=== PATIENT | male | born 1940 | race Caucasian/White ===

== ENCOUNTER → 2018-12-21 13:45 | Outpatient (CLI) | payer OTHER, SELFPAY ==
--- NOTE | 2018-12-21 | DI.RAD.S_ITS ---
PROCEDURE: XR CHEST 2V INDICATIONS: Unspecified chronic bronchitis TECHNIQUE: 2 views of the chest were acquired. COMPARISON: [facility], CT, CHEST HIGH RESOLUTION, 10/21/2016, 13:10. [facility], CR, CHEST 2 VIEW, 11/29/2014, 11:39. [facility], RG, XR CXR 2V, 08/18/2006, 9:43. [facility], CR, CHEST 2 VIEW, 12/04/2016, 10:21. [facility], , CHEST 2 VIEW, 08/27/2015, 14:21. FINDINGS: Surgical changes and devices: None. Lungs and pleura: Lungs are again seen to be abnormal with asymmetric left greater than right chronic lung disease that appears to represent chronic fibrotic change in bronchitis/bronchiectasis.. No pleural effusions or pneumothorax. Mediastinum: Mediastinal contours are normal. Heart size is normal. Bones and chest wall: No suspicious bony abnormalities. Soft tissues appear unremarkable. IMPRESSION: Chronic asymmetric left greater than right lung base airspace disease likely a combination of chronic bronchitis and bronchiectasis. Prior high-resolution chest CT has evaluated in the lung bases in this patient 10/21/16. No definite meter changes records clerk time. Dictated by: Richard Pichardo M.D. on 12/21/2018 at 15:12 Approved by: Richard Pichardo M.D. on 12/21/2018 at 15:14
== END ==
PROVIDERS: PCP Family Medicine; Visit Provider Orthopaedic Surgery
DX: J42 Unspecified chronic bronchitis (principal)
CPT/HCPCS: 71046

== ENCOUNTER 2020-10-17 10:24 | Emergency (ER) | payer OTHER, SELFPAY ==
[2020-10-17] VITALS (8 sets, daily range): BP systolic 117–143; BP diastolic 71–81; PULSE 59–72; RESP 14–21; TEMP 36.7; O2SAT 89–99; BMI 25.4
--- NOTE | 2020-10-17 10:35 | DI.RAD.S_ITS ---
PROCEDURE: XR CHEST 1V INDICATIONS: chest pain TECHNIQUE: One view of the chest was acquired. COMPARISON: [facility], , XR CHEST 2V, 12/21/2018, 13:57. [facility], , CHEST 2 VIEW, 12/04/2016, 10:21. FINDINGS: Surgical changes and devices: Electronic monitor left upper chest. Lungs and pleura: Lungs are abnormal with chronic fibrotic change and pulmonary hyperexpansion.. No pleural effusions or pneumothorax. Mediastinum: Mediastinal contours appear normal. Heart size is normal. Bones and chest wall: No suspicious bony lesions. Overlying soft tissues appear unremarkable. IMPRESSION: Chronic fibrotic pipe changer the lung parenchyma through the mid and lower lungs bilaterally. No definite acute disease. COPD, pulmonary hyperexpansion. Dictated by: Richard Pichardo M.D. on 10/17/2020 at 11:09 Approved by: Richard Pichardo M.D. on 10/17/2020 at 12:26
[2020-10-17 10:50] LABS: Add Manual Diff / Slide Review NO; Basophils Absolute Auto 100 /uL (0-100); Basophils Percent Auto 0.8 % (0-2); Eosinophils Absolute Auto 100 /uL (0-450); Eosinophils Percent Auto 0.9 % (2-4); Hematocrit 39.2 % (41-53); Lymphocytes Absolute Auto 1600 /uL (1100-4500); Lymphocytes Percent Auto 14.7 % (25-40); Mean Corpuscular HGB Conc 33.1 % (30-36); Mean Corpuscular Hemoglobin 28.5 PG (26-34); Mean Corpuscular Volume 86.1 fL (80-100); Monocytes Absolute Auto 900 /uL (0-900); Monocytes Percent Auto 8.7 % (3-14); Neutrophils Absolute Auto 8100 /uL (1500-7000); Neutrophils Percent Auto 74.9 % (50-75); Platelet Count 221 X10^3/uL (150-400); Red Blood Cell Count 4.56 X10^6/uL (4.5-5.9); Red Cell Distribution Width 14.4 % (11.6-14.8); White Blood Cell Count 10.8 X10^3/uL (4.5-11.0)
[2020-10-17 10:56] LABS: Prothrombin Time 11.7 SECONDS (10.1-12.7)
[2020-10-17 10:58] LABS: PTT Partial Thromboplastin Tim 20 SECONDS (26.4-36.2)
[2020-10-17 11:00] LABS: Alanine Aminotransferase 17 IU/L (<50); Albumin 4.8 g/dL (3.5-5.0); Albumin Globulin Ratio 1.4 (1.0-2.8); Alkaline Phosphatase 93 U/L (38-126); Aspartate Aminotransferase 21 IU/L (17-59); BUN Creatinine Ratio 19.5 (6-22); Bilirubin Total 0.5 mg/dL (0.2-1.3); Blood Urea Nitrogen 22 mg/dL (9-20); Calcium 10.1 mg/dL (8.4-10.2); Carbon Dioxide 27 mmol/L (22-32); Chloride 100 mmol/L (98-107); Creatine Kinase 39 U/L (55-170); Estimated Glomerular Filt Rate > 60.0 mL/min (>60); Globulin 3.4 g/dL (1.7-4.1); Glucose 123 mg/dL (80-110); HEMOLYSIS < 15 (0-50); Lipase 71 U/L (23-300); Magnesium 2.1 mg/dL (1.6-2.3); Potassium 4.4 mmol/L (3.4-5.1); Sodium 139 mmol/L (137-145); Total Protein 8.2 g/dL (6.3-8.2)
[2020-10-17 11:11] LABS: Troponin I < 0.012 ng/mL (0.01-0.034)
--- NOTE | 2020-10-17 11:42 | ED.GENADULT ---
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 He describes headache feeling faint no chest pain or palpitations he was sitting on a stool and slumped over onto the counter. His is able to hold onto him to prevent a fall. She noted that he was diaphoretic with the event. She also noted that he had a slight right hand tremor however this may be baseline. He currently has a Zio patch that was placed last night as part of his atrial fibrillation workup with Dr. Alvarado. His noted that she did indicate an event on the Zio patch with this episode. By the time he presents to the emergency department he is asymptomatic and pain free. He describes no recent fevers, chills, chest pain, dyspnea, abdominal pain. He notes that he does have BPH and was recently started on both tamsulosin and finasteride. Related Data Home Medications Medication Instructions Recorded Confirmed aspirin 325 mg OR QDAY #0 06/02/16 10/17/20 diltiazem HCl [Cardizem] 120 mg OR QDAY #0 06/02/16 10/17/20 flecainide 150 mg OR BID #0 06/02/16 10/17/20 fluticasone propion-salmeterol 1 inh IH BID #0 06/02/16 10/17/20 [Advair Diskus] rosuvastatin [Crestor] 10 mg OR QDAY #0 06/02/16 10/17/20 finasteride 5 mg PO DAILY 10/17/20 10/17/20 tamsulosin 0.4 mg PO DAILY 10/17/20 10/17/20 Allergies Allergy/AdvReac Type Severity Reaction Status Date / Time grass pollen [GRASS POLLEN] Allergy Unknown Verified 10/17/20 10:46 pollen extracts Allergy Unknown Verified 10/17/20 10:46 [POLLEN EXTRACTS] dust Allergy Unknown Uncoded 11/03/17 11:57 Review of Systems Review of Systems Narrative: Remainder of review of systems including constitutional, ENT, cardiovascular, respiratory, GI, , musculoskeletal, skin, neurologic and psychiatric systems reviewed and are unremarkable except as noted in HPI. Patient History Medical History (Updated 10/17/20 @ 13:20 by Yuridia Funez MD) Blind Bronchiectasis Chronic a-fib Gout Social History Smoking Status: Never smoker Smoking Status: Never smoker alcohol intake frequency: a few times a month Substance Use Type: does not use Exam Narrative Exam Narrative: General: Healthy appearing, in no acute distress. Able to give a complete and coherent history. Well-nourished well-developed HEENT: Moist mucous membranes, pupils are not reactive and eyes do not focus, Neck: No JVD, supple Respiratory: Lungs with scattered wheeze and occasional rhonchi but no consolidative findings. Full and symmetrical air movement Cardiac: Regular rate and rhythm no murmurs no bruits Abdomen: Soft, nontender, good bowel tones, no flank pain Skin: Warm and dry, no rashes Neurologic: Grossly neurologically intact with no obvious asymmetries or abnormalities Extremities: No trauma, well perfused, no lower extremity edema Psych: Cooperative, appropriate insight and affect Initial Vital Signs Initial Vital Signs: Vital Signs Temperature 98.1 F 10/17/20 10:30 Pulse Rate 65 10/17/20 10:30 Respiratory Rate 16 10/17/20 10:30 Blood Pressure 126/73 10/17/20 10:30 Pulse Oximetry 99 10/17/20 10:30 Course Orders Ordered: ED Orders 10/17/20 10:35 XR chest 1V Stat EKG-12 Lead Stat 10/17/20 10:41 Complete Blood Count AUTO DIFF Stat Comprehensive Metabolic Panel Stat Lipase Stat Magnesium Stat Partial Thromboplastin Time Stat Prothrombin Time INR Stat Troponin & CK Cardiac Panel Stat Vital Signs Vital signs: Vital Signs - 8 hr 10/17/20 10:30 10/17/20 10:41 10/17/20 11:00 Temperature 98.1 F Pulse Rate 65 68 61 Respiratory Rate 16 15 18 Blood Pressure 126/73 126/73 131/71 Pulse Oximetry 99 99 99 10/17/20 11:30 10/17/20 12:00 10/17/20 12:30 Temperature Pulse Rate 63 59 L 62 Respiratory Rate 18 14 15 Blood Pressure 140/79 140/72 143/81 H Pulse Oximetry 97 97 97 10/17/20 12:42 Temperature Pulse Rate 72 Respiratory Rate 21 Blood Pressure 122/72 Pulse Oximetry Medical Decision Making Medical Records Medical records reviewed: Yes I reviewed the patient's medical records. Lab Data Lab results reviewed: Yes I reviewed the patient's lab results. Result diagrams: 10/17/20 10:41 10/17/20 10:41 Labs: Lab Results 10/17/20 10/17/20 10/17/20 Range/Units 10:41 10:41 10:41 WBC 10.8 (4.5-11.0) X10^3/uL RBC 4.56 (4.5-5.9) X10^6/uL Hgb 13.0 L (13.5-17.5) g/dL Hct 39.2 L (41-53) % MCV 86.1 (80-100) fL MCH 28.5 (26-34) PG MCHC 33.1 (30-36) % RDW 14.4 (11.6-14.8) % Plt Count 221 (150-400) X10^3/uL Neut % (Auto) 74.9 (50-75) % Lymph % (Auto) 14.7 L (25-40) % [place] % (Auto) 8.7 (3-14) % Eos % (Auto) 0.9 L (2-4) % Baso % (Auto) 0.8 (0-2) % Neut # (Auto) 8100 H (3229-8634) /uL Lymph # (Auto) 1600 (5190-1000) /uL [place] # (Auto) 900 (0-900) /uL Eos # (Auto) 100 (0-450) /uL Baso # (Auto) 100 (0-100) /uL PT 11.7 (10.1-12.7) SECONDS INR 1.0 (0.9-1.3) APTT 20 L (26.4-36.2) SECONDS Sodium 139 (137-145) mmol/L Potassium 4.4 (3.4-5.1) mmol/L Chloride 100 (98-107) mmol/L Carbon Dioxide 27 (22-32) mmol/L BUN 22 H (9-20) mg/dL Creatinine 1.13 (0.66-1.25) mg/dL Estimated GFR > 60.0 (>60) mL/min BUN/Creatinine Ratio 19.5 (6-22) Glucose 123 H (80-110) mg/dL Calcium 10.1 (8.4-10.2) mg/dL Magnesium 2.1 (1.6-2.3) mg/dL Total Bilirubin 0.5 (0.2-1.3) mg/dL AST 21 (17-59) IU/L ALT 17 (<50) IU/L Alkaline Phosphatase 93 (38-126) U/L Total Creatine Kinase 39 L (55-170) U/L CK-MB (CK-2) TNP CK-MB (CK-2) Rel Index TNP Troponin I < 0.012 (0.01-0.034) ng/mL Total Protein 8.2 (6.3-8.2) g/dL Albumin 4.8 (3.5-5.0) g/dL Globulin 3.4 (1.7-4.1) g/dL Albumin/Globulin Ratio 1.4 (1.0-2.8) Lipase 71 (23-300) U/L 10/17/20 Range/Units 10:41 WBC (4.5-11.0) X10^3/uL RBC (4.5-5.9) X10^6/uL Hgb (13.5-17.5) g/dL Hct (41-53) % MCV (80-100) fL MCH (26-34) PG MCHC (30-36) % RDW (11.6-14.8) % Plt Count (150-400) X10^3/uL Neut % (Auto) (50-75) % Lymph % (Auto) (25-40) % [place] % (Auto) (3-14) % Eos % (Auto) (2-4) % Baso % (Auto) (0-2) % Neut # (Auto) (8317-9423) /uL Lymph # (Auto) (4839-8586) /uL [place] # (Auto) (0-900) /uL Eos # (Auto) (0-450) /uL Baso # (Auto) (0-100) /uL PT (10.1-12.7) SECONDS INR (0.9-1.3) APTT (26.4-36.2) SECONDS Sodium (137-145) mmol/L Potassium (3.4-5.1) mmol/L Chloride (98-107) mmol/L Carbon Dioxide (22-32) mmol/L BUN (9-20) mg/dL Creatinine (0.66-1.25) mg/dL Estimated GFR (>60) mL/min BUN/Creatinine Ratio (6-22) Glucose (80-110) mg/dL Calcium (8.4-10.2) mg/dL Magnesium Cancelled (1.6-2.3) mg/dL Total Bilirubin (0.2-1.3) mg/dL AST (17-59) IU/L ALT (<50) IU/L Alkaline Phosphatase (38-126) U/L Total Creatine Kinase (55-170) U/L CK-MB (CK-2) CK-MB (CK-2) Rel Index Troponin I (0.01-0.034) ng/mL Total Protein (6.3-8.2) g/dL Albumin (3.5-5.0) g/dL Globulin (1.7-4.1) g/dL Albumin/Globulin Ratio (1.0-2.8) Lipase (23-300) U/L Imaging Data Chest x-ray: Radiologist's Impression: FINDINGS: Surgical changes and devices: Electronic monitor left upper chest. Lungs and pleura: Lungs are abnormal with chronic fibrotic change and pulmonary hyperexpansion.. No pleural effusions or pneumothorax. Mediastinum: Mediastinal contours appear normal. Heart size is normal. Bones and chest wall: No suspicious bony lesions. Overlying soft tissues appear unremarkable. 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 No definite acute disease. COPD, pulmonary hyperexpansion. Dictated by: Richard Pichardo M.D. on 10/17/2020 at 11:09 ECG Data Attestation: I personally reviewed and interpreted this ECG as follows: Interpretation: Sinus rhythm at a rate of 70 Biventricular block with leftward axis No acute ischemic changes MDM Narrative Medical decision making narrative: 80-year-old gentleman with a syncopal episode at home slumping from the chair onto the table with no suggestion of acute coronary syndrome or myocardial infarction, no stroke, no sepsis or other infection appreciated. He did recently start both Flomax and finasteride in her taking both in the morning. He notes that he frequently can have low blood pressure. In the emergency room his exam is entirely benign with no orthostasis. Of note he does have a Zio patch in place and his did indicate with patch the time of his syncopal episode. He currently is in sinus rhythm. With no other specific findings found patient will be discharged. I will ask him to split the Flomax and the finasteride, 1 in the morning 1 in the evening and check morning blood pressures. If significantly orthostatic encourage him to drink more fluid and will need to follow-up with his supervisor finishing room with blood pressure readings, findings from the Zio patch and discussion of additional medications for his paroxysmal atrial fibrillation and blood pressure control. At this time he is safe for home discharge Discharge Plan Departure Patient Disposition: Home Clinical Impression: Syncope Qualifiers: Syncope type: unspecified Qualified Code(s): R55 - Syncope and collapse Instructions: DI for Syncope in Adults (Fainting) Activity Restrictions/Additional Instructions: Thank you for coming in today Your workup was quite reassuring. There is no evidence of a heart attack or heart attack like syndrome. No stroke, no significant infections or electrolyte abnormalities. I suspect that the episode that you had this morning is related to low blood pressure. I am going to suggest that you document blood pressures each morning and follow-up with your supervisor finishing room within the next couple of weeks with results of the Zio patch and discussion of blood pressures. I am also going to suggest that you split up the finasteride and tamsulosin, 1 in the morning 1 in the evening rather than both at the same time. If you have new findings or other concerns, please feel free to return to the emergency department Prescriptions: No Action flecainide 150 MG tablet 150 mg OR BID Qty: 0 RF: 0 rosuvastatin [Crestor] 10 MG tablet 10 mg OR QDAY Qty: 0 RF: 0 diltiazem HCl [Cardizem] 120 MG tablet 120 mg OR QDAY Qty: 0 RF: 0 aspirin 325 MG tablet 325 mg OR QDAY Qty: 0 RF: 0 fluticasone propion-salmeterol [Advair Diskus] 250-50 mcg/dose blister with device 1 inh IH BID Qty: 0 RF: 0 finasteride 5 mg tablet 5 mg PO DAILY RF: 0 tamsulosin 0.4 mg capsule 0.4 mg PO DAILY RF: 0 Referrals: Mirza Sinha MD [Primary Care Provider] -
== END 2020-10-17 13:37 | disposition home or self-care (01) ==
PROVIDERS: Emergency Provider Emergency Medicine; PCP Family Medicine
DX: R55 Syncope and collapse (principal); I48.91 Unspecified atrial fibrillation; Z79.82 Long term (current) use of aspirin
CPT/HCPCS: 71045; 80053; 82550; 83690; 83735; 84484; 85025; 85610; 85730; 93005; 93010; 99281; 99283

== ENCOUNTER → 2020-12-03 11:55 | Outpatient (CLI) | payer OTHER, SELFPAY ==
--- NOTE | 2020-12-03 12:11 | DI.CT.S_ITS ---
PROCEDURE: CT HEAD/BRAIN WO CON INDICATIONS: SYNCOPE TECHNIQUE: Noncontrast 4.5 mm thick angled axial sections acquired from the foramen magnum to the vertex, with coronal and sagittal reformats. For radiation dose reduction, the following was used: automated exposure control, adjustment of mA and/or kV according to patient size. COMPARISON: [facility], CT, SINUS SCREEN WO CONTRAST, 05/27/2012, 11:28. FINDINGS: Image quality: Excellent. CSF spaces: Basal cisterns are patent. No extra-axial fluid collections. The ventricles are symmetric in size and shape. Brain: No intracranial bleeds or masses. There is cerebral volume loss for age, with resultant ventricular and sulcal prominence. There are periventricular and deep white matter chronic small vessel ischemic changes. There is intracranial internal carotid artery atherosclerosis. Skull and face: Calvarium and visualized facial bones appear intact, without suspicious lesions. Sinuses: At least moderate mucosal thickening can be seen throughout the paranasal sinuses. There is moderate leftward nasal septal deviation. The mastoid air cells are poorly seen. IMPRESSION: No acute intracranial process is seen. Paranasal sinus disease noted. Dictated by: Jostin Wallace M.D. on 12/03/2020 at 11:32 Approved by: Jostin Wallace M.D. on 12/03/2020 at 11:33
== END ==
PROVIDERS: PCP Family Medicine; Referring Provider Family Medicine; Visit Provider Family Medicine
DX: J32.8 Other chronic sinusitis (principal); J34.2 Deviated nasal septum; I65.29 Occlusion and stenosis of unspecified carotid artery; R55 Syncope and collapse; R51.9 Headache, unspecified
CPT/HCPCS: 70450

== ENCOUNTER → 2021-03-13 09:47 | Outpatient (CLI) | payer OTHER, SELFPAY ==
--- NOTE | 2021-03-13 | DI.RAD.S_ITS ---
PROCEDURE: XR HIP W PEL IF DONE RT 2V COMPARISON: None. INDICATIONS: Pain in right hip FINDINGS: Two views of the right pelvis demonstrate degenerative changes with joint space narrowing, osteophytes, and subchondral sclerosis. No focal osseous lesions. Soft tissues are normal. Vasculature demonstrates atherosclerotic calcifications. IMPRESSION: Degenerative changes of the right hip consistent with osteoarthritis. Dictated by: Derian Hammond M.D. on 03/13/2021 at 15:57 Approved by: Derian Hammond M.D. on 03/13/2021 at 15:58
== END ==
PROVIDERS: PCP Family Medicine; Referring Provider Family Medicine; Visit Provider Family Medicine
DX: M25.551 Pain in right hip (principal)
CPT/HCPCS: 73502

== ENCOUNTER 2021-10-03 03:55 | Emergency (ER) | payer OTHER, SELFPAY ==
[2021-10-03 04:07] VITALS: BP 184/102; PULSE 74; RESP 14; TEMP 37; O2SAT 98
--- NOTE | 2021-10-03 04:09 | ED.ARRPALP ---
HPI - Arrhythmia/Palpitations General Stated Complaint: afib Time Seen by Provider: 10/03/21 03:56 History of Present Illness HPI narrative: 81-year-old male nonsmoker with a history of atrial fibrillation, hypertension hyperlipidemia presents with his in the chief complaint of an episode of atrial fibrillation early this morning. He states that he went to bed in his normal state of health and denies any dizziness, weakness or lightheadedness. He has had no chest pain or shortness of breath. He states that he woke up and felt his heart racing and felt a bit anxious which he is very familiar with, given his history of atrial fibrillation. Took his flecainide at home as instructed by his Cardiology team and drove here, by the time he arrived his symptoms had resolved in on initial evaluation he is found to be in a normal sinus rhythm. He follows with cardiology in [place]. He does state that he has stopped taking his anticoagulation because he is legally blind in frequently bumps into things and falls and he and his field insurance sales manager agreed that with frequent falls his risk of being on an anticoagulant is higher than not taking it Related Data Home Medications Medication Instructions Recorded Confirmed aspirin 325 mg tablet 325 mg OR QDAY #0 06/02/16 10/17/20 diltiazem HCl 120 mg tablet 120 mg OR QDAY #0 06/02/16 10/17/20 (Cardizem) flecainide 150 mg tablet 150 mg OR BID #0 06/02/16 10/17/20 fluticasone 250 mcg-salmeterol 50 1 inh IH BID #0 06/02/16 10/17/20 mcg/dose blistr powdr for inhalation (Advair Diskus) rosuvastatin 10 mg tablet (Crestor) 10 mg OR QDAY #0 06/02/16 10/17/20 finasteride 5 mg tablet 5 mg PO DAILY 10/17/20 10/17/20 tamsulosin 0.4 mg capsule 0.4 mg PO DAILY 10/17/20 10/17/20 Allergies Allergy/AdvReac Type Severity Reaction Status Date / Time grass pollen [GRASS POLLEN] Allergy Unknown Verified 10/17/20 10:46 pollen extracts Allergy Unknown Verified 10/17/20 10:46 [POLLEN EXTRACTS] dust Allergy Unknown Uncoded 11/03/17 11:57 Review of Systems Review of Systems Narrative: GENERAL: Denies chills, fatigue, malaise, fever, sweats. HEENT: Denies sinus pain, ear pain, sore throat, difficulty swallowing, dizziness. RESPIRATORY: Denies dyspnea, cough, wheezing, hemoptysis, sputum. CARDIOVASCULAR: See HPI GASTROINTESTINAL: Denies nausea, vomiting, abdominal pain, diarrhea, constipation, melena. : Denies dysuria, frequency, incontinence, hematuria, urinary retention. MUSCULOSKELETAL: denies weakness, joint pain, or bony pain SKIN: Denies rash, skin lesions, or other NEUROLOGIC: Denies weakness, headache, numbness, change in speech, confusion, seizures, incoordination. PSYCHIATRIC: No concerning psychosocial issues. 12 point review of systems is negative except for those stated above Patient History Medical History Blind Bronchiectasis Chronic a-fib Gout Social History Smoking Status: Never smoker Smoking Status: Never smoker alcohol intake frequency: a few times a month Substance Use Type: does not use Exam Narrative Exam Narrative: GENERAL: [81] year old patient appears stated age. Well-developed patient, in mild distress. HEAD: Atraumatic. Normocephalic. EYES: Pupils equal round and reactive. Extraocular motions intact. No scleral icterus. No injection or drainage. ENT: Nose without bleeding, purulent drainage. Throat without erythema, tonsillar hypertrophy or exudate. Airway patent. NECK: Trachea midline. Non tender CARDIOVASCULAR: Regular rate and rhythm without murmurs, gallops, or rubs. RESPIRATORY: Clear to auscultation. Breath sounds equal bilaterally. No wheezes, rales, or rhonchi. GASTROINTESTINAL: Abdomen soft, non-tender, nondistended. EXTREMITIES: No edema or joint tenderness. BACK: Nontender without deformity or crepitance. No flank tenderness. NEURO: AOx3. SKIN: No rash or erythema of visible areas MDM - Arrhythmia/Palpitations ECG Data Interpretation: EKG is normal sinus rhythm rate [77] and free of any signs of ischemia or ectopy. No ST segmental elevation or depression. No T wave inversions. LVH MDM Narrative Medical decision making narrative: I had extensive discussion with the patient and his . He is completely asymptomatic and states that he frequently enters into atrial fibrillation at home which converts with flecainide. He states it lasted a bit longer tonight but resolved and now he feels asymptomatic. As stated, we had extensive discussion about the possibility of other diagnoses and the utility of a large and more typical workup including labs and imaging. He and both are quick to state they have been through this many times and feel quite comfortable that this was a normal episode of atrial fibrillation and would prefer to hold off on a more advanced workup at this point time. They both clearly understand the risks and benefits of this decision. The patient is alert and oriented, articulate and demonstrates capacity to make these decisions. He understands that they may return at any point for return of symptoms or merely a change of heart. Questions answered to their apparent satisfaction Discharge Plan Departure Patient Disposition: Home Clinical Impression: Atrial fib/flutter, transient Activity Restrictions/Additional Instructions: *You have been diagnosed with [atrial fibrillation resolved. As we discussed her history and physical exam are very reassuring. It seems most likely that you had an episode of AFib that was converted by your flecainide. Also, as we discussed if there is an underlying condition other than this we will not be able to make a diagnosis without completing a much larger workup including labs and imaging. We sure the opinion that it is likely atrial fibrillation, however if your symptoms return or anything else arises that gives a concern please return immediately for a repeat evaluation *What to do: *Please continue to take your regular medications as directed. [ ] New medication prescriptions sent to your pharmacy: [ ] [ ] New medication written as a paper prescription [ ] No new medications given *Please follow up with your primary care provider in 2-3 days, call for an appointment. Let them know you were seen in the Emergency Department and that we ask that you be seen in follow up. We will electronically transmit a record of today's note if your PCP is in our system *If you do not have a primary care provider please contact the [facility] Resource line at [phone]. They will ask some questions about your medical history and help get you set up with a doctor in the community. *Return to Emergency Department if you should have any new, worsening or concerning symptoms, such as [fever greater than 101 F, shaking chills, worsening pain, persistent vomiting or other bothersome symptoms] Prescriptions: No Action flecainide 150 MG tablet 150 mg OR BID Qty: 0 0RF rosuvastatin [Crestor] 10 MG tablet 10 mg OR QDAY Qty: 0 0RF diltiazem HCl [Cardizem] 120 MG tablet 120 mg OR QDAY Qty: 0 0RF aspirin 325 MG tablet 325 mg OR QDAY Qty: 0 0RF fluticasone propion-salmeterol [Advair Diskus] 250-50 mcg/dose blister with device 1 inh IH BID Qty: 0 0RF finasteride 5 mg tablet 5 mg PO DAILY 0RF tamsulosin 0.4 mg capsule 0.4 mg PO DAILY 0RF Referrals: Mirza Sinha MD [Primary Care Provider] -
== END 2021-10-03 04:14 | disposition home or self-care (01) ==
PROVIDERS: Emergency Provider Emergency Medicine; PCP Family Medicine
DX: I48.91 Unspecified atrial fibrillation (principal)
CPT/HCPCS: 93005; 93010; 99282

== ENCOUNTER → 2023-03-13 10:41 | Outpatient (CLI) | payer OTHER, SELFPAY ==
--- NOTE | 2023-03-13 | DI.CT.S_ITS ---
PROCEDURE: CT HEAD/BRAIN WO CON INDICATIONS: Syncope and collapse TECHNIQUE: Noncontrast 4.5 mm thick angled axial sections acquired from the foramen magnum to the vertex, with coronal and sagittal reformats. For radiation dose reduction, the following was used: automated exposure control, adjustment of mA and/or kV according to patient size. COMPARISON: [facility], CT, CT HEAD/BRAIN WO CON, 12/03/2020, 12:01. FINDINGS: Image quality: Excellent. CSF spaces: Basal cisterns are patent. No extra-axial fluid collections. Ventricles are normal in size and shape. Brain: No midline shift. No intracranial masses or hemorrhage. Chávez-white matter interface is normal. Moderate cerebral and cerebellar volume loss with multifocal white matter chronic ischemic change noted. Atherosclerotic calcification noted associated with cavernous segments of both internal carotid arteries. Skull and face: Calvarium and visualized facial bones are intact, without suspicious lesions. Sinuses: Mild mid ethmoid and maxillary sinus mucosal thickening. Both mastoids are hypopneumatized IMPRESSION: Atrophy and confluent white matter chronic ischemic change. No intracranial hemorrhage or mass effect. Mild maxillary and ethmoid mucosal sinus disease Approved by: Mitul Vieira M.D. on 03/13/2023 at 10:56
== END ==
PROVIDERS: PCP Family Medicine; Referring Provider Family Medicine; Visit Provider Family Medicine
DX: R55 Syncope and collapse (principal); J32.8 Other chronic sinusitis
CPT/HCPCS: 70450

== ENCOUNTER → 2023-03-24 14:15 | Outpatient (CLI) | payer OTHER, SELFPAY ==
--- NOTE | 2023-03-24 14:18 | DI.US.S_ITS ---
PROCEDURE: US ABDOMEN COMPLETE INDICATIONS: Unspecified abdominal pain TECHNIQUE: Real-time scanning was performed of the abdominal and retroperitoneal organs, with image documentation. COMPARISON: None. FINDINGS: Liver: Liver is normal in size and homogeneous in echotexture. Focal hyperechoic nodule in the anterior right hepatic lobe measures 2.4 x 2.1 cm, probable hemangioma Gallbladder: Focal shadowing calculi present without gallbladder wall thickening or pericholecystic fluid Biliary ducts: Intrahepatic bile ducts are non-dilated. Extrahepatic bile duct caliber measures 5.7 mm. Normal is 6-7 mm or less in diameter, or 10 mm or less post-cholecystectomy. Pancreas: Visualized portions of the pancreas are sonographically normal. Spleen: Spleen is normal in size and homogeneous in echotexture. Kidneys: Kidneys are normal in size and echotexture. Right kidney measures 11.3 cm long; left kidney measures 18.2 cm long. No hydronephrosis or nephrolithiasis. No solid masses. Multiple renal cysts, largest on the left measures 11.9 x 13.4 cm Aorta: Visualized aorta is normal in caliber at less than 3 cm. Iliacs: Proximal common iliac arteries are normal in caliber at less than 2.5 cm. IVC: Intrahepatic inferior vena cava is patent. Miscellaneous: No free abdominal fluid. IMPRESSION: Hyperechoic right hepatic nodule is possibly hemangioma. Consider follow-up MRI liver, hemangioma protocol Large simple renal cysts measure up to 11.9 cm. No hydronephrosis. Cholelithiasis without evidence of acute cholecystitis Approved by: Mitul Vieira M.D. on 03/24/2023 at 18:30
== END ==
PROVIDERS: PCP Family Medicine; Referring Provider Family Medicine; Visit Provider Family Medicine
DX: N28.1 Cyst of kidney, acquired (principal); K76.9 Liver disease, unspecified; K80.20 Calculus of gallbladder without cholecystitis without obstruction; R10.9 Unspecified abdominal pain
CPT/HCPCS: 76700

== ENCOUNTER 2023-11-24 11:00 | Emergency (ER) | payer OTHER, SELFPAY ==
[2023-11-24] VITALS (15 sets, daily range): BP systolic 101–137; BP diastolic 56–73; PULSE 67–83; RESP 12–34; TEMP 36.9; O2SAT 85–97; BMI 26.3
--- NOTE | 2023-11-24 11:27 | DI.RAD.S_ITS ---
PROCEDURE: XR CHEST 1V INDICATIONS: Shortness of breath TECHNIQUE: One view of the chest was acquired. COMPARISON: [facility], [place], XR CHEST 1V, 10/17/2020, 10:42. [facility], CR, XR CHEST 2V, 12/21/2018, 13:57. FINDINGS: Surgical changes and devices: None. Lungs and pleura: Chronic interstitial changes in the bilateral lungs, most pronounced within the mid lung mckay, similar appearance to prior. No pleural effusions or pneumothorax. Mediastinum: Mediastinal contours appear normal. Heart size is normal. Bones and chest wall: No suspicious bony lesions. Overlying soft tissues appear unremarkable. IMPRESSION: Stable chronic fibrotic changes. No definite acute disease is seen. Dictated by: Artur Hernández M.D. on 11/24/2023 at 12:39 Approved by: Artur Hernández M.D. on 11/24/2023 at 12:40
[2023-11-24] MEDS: ONDANSETRON 4 MG/2 ML INJ IV (11:30)
--- NOTE | 2023-11-24 11:46 | ED.SOB ---
HPI - SOB/Dyspnea General Chief Complaint: Shortness of Breath/Dyspnea Stated Complaint: had ravin poss pulmonary adema needs fluids shaky Time Seen by Provider: 11/24/23 11:40 History of Present Illness HPI Narrative: Patient here with . drove patient here when they were on their way home from [facility]. Patient just had transesophageal echocardiogram for evaluation, 1 year, status watchman placed. Postoperatively at [facility] patient was hypoxic. However he did improve and was discharged home. On way home patient was vomiting. [place] very short of breath. Patient sees Dr. Cooper cardiology patient sees Pulmonary Services as well both at [facility]. Patient is speaking full sentences. No distress. But not requiring supplemental oxygen. Has coarse rhonchi bilaterally at the bases. He is awake alert oriented x4 Related Data Home Medications Medication Instructions Recorded Confirmed aspirin 325 mg tablet 325 mg OR QDAY ##0 06/02/16 08/26/23 diltiazem HCl 120 mg tablet 120 mg OR QDAY ##0 06/02/16 08/26/23 (Cardizem) flecainide 150 mg tablet 150 mg OR BID ##0 06/02/16 08/26/23 fluticasone 250 mcg-salmeterol 50 1 inh IH BID ##0 06/02/16 08/26/23 mcg/dose blistr powdr for inhalation (Advair Diskus) rosuvastatin 10 mg tablet (Crestor) 10 mg OR QDAY ##0 06/02/16 08/26/23 finasteride 5 mg tablet 5 mg PO DAILY 10/17/20 08/26/23 tamsulosin 0.4 mg capsule 0.8 mg PO BEDTIME 08/26/23 08/26/23 Allergies Allergy/AdvReac Type Severity Reaction Status Date / Time grass pollen [GRASS POLLEN] Allergy Unknown Verified 10/17/20 10:46 pollen extracts Allergy Unknown Verified 10/17/20 10:46 [POLLEN EXTRACTS] dust Allergy Unknown Uncoded 11/03/17 11:57 Review of Systems Review of Systems Narrative: GENERAL: negative chills, fatigue, malaise, fever, sweats. HEENT: negative sinus pain, ear pain, sore throat RESPIRATORY: Positive dyspnea, cough CARDIOVASCULAR: negative chest pain, palpitations GASTROINTESTINAL: Positive nausea, vomiting, negative abdominal pain : negative dysuria, frequency, hematuria MUSCULOSKELETAL: negative muscle or bony pain SKIN: negative rash, skin lesions NEUROLOGIC: negative weakness, numbness ROS Unobtainable: All systems reviewed & are unremarkable except as noted in HPI and below Patient History Medical History Family history of prostate cancer History of bacteremia History of UTI BPH w urinary obs/LUTS Hyperlipidemia High blood pressure Chronic a-fib Bronchiectasis Gout Blind Family History Father Blood disease Cancer Glaucoma Brother Cancer Social History marital status: number of children: 2 Smoking Status: Never smoker alcohol intake: current caffeine: Yes Smoking Status: Never smoker alcohol intake frequency: a few times a month Substance Use Type: does not use Exam Narrative Exam Narrative: GENERAL: in no distress, not toxic not dyspneic HEAD: Normocephalic. EYES: Pupils equal round ENT: Mucous membranes moist. NECK: Trachea midline. CARDIOVASCULAR: Regular rate and rhythm RESPIRATORY: Patient speaking full since. Is requiring supplemental oxygen. Has coarse bilateral basilar lung sounds GASTROINTESTINAL: Abdomen soft, non-tender EXTREMITIES: No gross deformities. BACK: No flank tenderness. NEURO: AOx4. Clear speech SKIN: Warm and dry PSYCH: Not anxious, is cooperative Initial Vital Signs Initial Vital Signs: Vital Signs Temperature 98.5 F 11/24/23 11:08 Pulse Rate 83 11/24/23 11:08 Respiratory Rate 32 H 11/24/23 11:08 Blood Pressure 135/57 L 11/24/23 11:08 Pulse Oximetry 85 L 11/24/23 11:08 Oxygen Delivery Method Room Air 11/24/23 11:08 Course Orders Ordered: Discontinued Medications Ceftriaxone Sodium 2,000 mg/ (Sodium Chloride) 100 mls @ 200 mls/hr IV NOW ONE Stop: 11/24/23 13:36 Last Infusion: 11/24/23 15:02 Dose: Infused Documented By: Admin: 11/24/23 14:15 Dose: 200 mls/hr Documented By: JIMBO Metronidazole (Flagyl) 500 mg in 100 mls @ 100 mls/hr IV NOW ONE Stop: 11/24/23 14:34 Last Infusion: 11/24/23 16:17 Dose: Infused Documented By: Admin: 11/24/23 15:04 Dose: 100 mls/hr Documented By: JIMBO Ondansetron HCl (Ondansetron 4 Mg/2 Ml Inj) 4 mg IV NOW ONE Stop: 11/24/23 11:28 Last Admin: 11/24/23 11:30 Dose: 4 mg Documented By: DAVID Vital Signs Vital signs: Vital Signs - 8 hr 11/24/23 11:08 11/24/23 11:41 11/24/23 12:00 Temperature 98.5 F Pulse Rate 83 82 77 Respiratory Rate 32 H 34 H 27 H Blood Pressure 135/57 L 137/73 Pulse Oximetry 85 L 91 93 Oxygen Delivery Method Room Air Oxygen Flow Rate 11/24/23 12:00 11/24/23 12:30 11/24/23 12:30 Temperature Pulse Rate 75 Respiratory Rate 25 H Blood Pressure 101/56 L 106/57 L Pulse Oximetry 96 Oxygen Delivery Method Oxygen Flow Rate 11/24/23 13:00 11/24/23 13:00 11/24/23 13:30 Temperature Pulse Rate 70 Respiratory Rate 22 Blood Pressure 108/57 L 117/63 Pulse Oximetry 96 Oxygen Delivery Method Nasal Cannula Oxygen Flow Rate 5 11/24/23 13:30 11/24/23 14:00 11/24/23 14:00 Temperature Pulse Rate 75 68 Respiratory Rate 26 H 15 Blood Pressure 117/66 Pulse Oximetry 95 93 Oxygen Delivery Method Nasal Cannula Nasal Cannula Oxygen Flow Rate 5 5 11/24/23 14:30 11/24/23 14:30 11/24/23 15:00 Temperature Pulse Rate 71 72 Respiratory Rate 12 22 Blood Pressure 112/68 Pulse Oximetry 94 94 Oxygen Delivery Method Nasal Cannula Nasal Cannula Oxygen Flow Rate 5 5 11/24/23 15:00 Temperature Pulse Rate Respiratory Rate Blood Pressure 114/68 Pulse Oximetry Oxygen Delivery Method Oxygen Flow Rate MDM - SOB/Dyspnea Lab Data 11/24/23 11:30 11/24/23 11:30 Labs: Lab Results 11/24/23 11/24/23 11/24/23 Range/Units 11:30 11:55 13:35 WBC 20.5 H (4.5-11.0) X10^3/uL RBC 4.14 L (4.5-5.9) X10^6/uL Hgb 11.4 L (13.5-17.5) g/dL Hct 35.4 L (41-53) % MCV 85.6 (80-100) fL MCH 27.5 (26-34) PG MCHC 32.1 (30-36) % RDW 15.7 H (11.6-14.8) % Plt Count 317 (150-400) X10^3/uL Neut % (Auto) 87.6 H (50-75) % Lymph % (Auto) 7.5 L (25-40) % [place] % (Auto) 4.0 (3-14) % Eos % (Auto) 0.7 L (2-4) % Baso % (Auto) 0.2 (0-2) % Neut # (Auto) 74941 H (9423-5656) /uL Lymph # (Auto) 1500 (9315-8281) /uL [place] # (Auto) 800 (0-900) /uL Eos # (Auto) 200 (0-450) /uL Baso # (Auto) 0 (0-100) /uL PT 11.6 (9.4-12.5) SECONDS INR 1.0 (0.9-1.3) Sodium 141 (137-145) mmol/L Potassium 4.4 (3.4-5.1) mmol/L Chloride 110 H (98-107) mmol/L Carbon Dioxide 21 L (22-32) mmol/L BUN 35 H (9-20) mg/dL Creatinine 1.49 H (0.66-1.25) mg/dL Estimated GFR 47 L (>60) mL/min BUN/Creatinine Ratio 23.5 H (6-22) Glucose 131 H (80-110) mg/dL Lactate 2.3 H 1.0 (0.7-2.1) mmol/L Calcium 9.2 (8.4-10.2) mg/dL Total Bilirubin 0.6 (0.2-1.3) mg/dL AST 23 (17-59) IU/L ALT 17 (<50) IU/L Alkaline Phosphatase 79 (38-126) U/L Troponin I < 0.012 (0.01-0.034) ng/mL NT-Pro-B Natriuret Pep 406 (<450) pg/mL Total Protein 7.9 (6.3-8.2) g/dL Albumin 4.8 (3.5-5.0) g/dL Globulin 3.1 (1.7-4.1) g/dL Albumin/Globulin Ratio 1.5 (1.0-2.8) Chlamy pneumoniae PCR Not detected (Not Detect) Adenovirus (PCR) Not detected (Not Detect) B.parapertussis DNA PCR Not detected (Not Detecte) Coronavirus OC43 (PCR) Not detected (Not Detect) Coronavirus HKU1 (PCR) Not detected (Not Detect) Coronavirus 229E (PCR) Not detected (Not Detect) SARS-CoV-2 (PCR) Not detected (Not Detecte) Coronavirus NL63 (PCR) Not detected (Not Detect) Human Metapneumovir PCR Not detected (Not Detect) Influenza Type A (PCR) Not detected (Not Detect) Influenza Type B (PCR) Not detected (Not Detect) M. pneumoniae (PCR) Not detected (Not Detect) Parainfluenza 1 (PCR) Not detected (Not Detect) Parainfluenza 2 (PCR) Not detected (Not Detect) Parainfluenza 3 (PCR) Not detected (Not Detect) Parainfluenza 4 (PCR) Not detected (Not Detect) RSV (PCR) Not detected (Not Detect) Entero/Rhino (PCR) Not detected (Not Detect) Point of Care Testing Glucose POC 129 Imaging Data Chest x-ray: Radiologist's Impression: [place] [address] XRay Report Signed Patient: Gregg Leonard MR#: [id number] : 1940 Acct:[id number] Age/Sex: 83 / M Date of Service: 11/24/23 Loc: ED Accession Number: [id number] Procedure: XR chest 1V Ordering Provider: Jese Calixto MD PROCEDURE: XR CHEST 1V INDICATIONS: Shortness of breath TECHNIQUE: One view of the chest was acquired. COMPARISON: [facility], [place], XR CHEST 1V, 10/17/2020, 10:42. [facility], , XR CHEST 2V, 12/21/2018, 13:57. FINDINGS: Surgical changes and devices: None. Lungs and pleura: Chronic interstitial changes in the bilateral lungs, most pronounced within the mid lung mckay, similar appearance to prior. No pleural effusions or pneumothorax. Mediastinum: Mediastinal contours appear normal. Heart size is normal. Bones and chest wall: No suspicious bony lesions. Overlying soft tissues appear unremarkable. IMPRESSION: Stable chronic fibrotic changes. No definite acute disease is seen. Dictated by: Artur Hernández M.D. on 11/24/2023 at 12:39 Approved by: Artur Hernández M.D. on 11/24/2023 at 12:40 [facility] [place] Narrative Medical decision making narrative: Patient here with . drove patient here when they were on their way home from [facility]. Patient just had transesophageal echocardiogram for evaluation, 1 year, status watchman placed. Postoperatively at [facility] patient was hypoxic. However he did improve and was discharged home. On way home patient was vomiting. [place] very short of breath. Patient sees Dr. Cooper cardiology patient sees Pulmonary Services as well both at [facility]. Patient is speaking full sentences. No distress. But not requiring supplemental oxygen. Has coarse rhonchi bilaterally at the bases. He is awake alert oriented x4 After history and exam chest x-ray CBC CMP EKG antibiotic, respiratory therapy evaluation [facility] [place] Medical records reviewed: No recent visit for this complaint Differential considered: Includes but not limited to aspiration pneumonia esophageal rupture Lab Test results independently reviewed as above. Pertinent findings: WBC 20.5 possibly from demargination from vomiting Sodium 141 potassium 4.4 BUN 35 creatinine 1.49 GFR 47 lactic acid 2.3 troponin less than 0.012 respiratory panel negative Independently reviewed EKG normal sinus rhythm rate [address] elevation or depression Imaging studies independently reviewed: Chest x-ray no acute finding Consultations: 3:[address] Mar, cardiology, he he agrees, this is not cardiology related for treatment. Admit to hospitalist. 3:[address] Martínez, hospitalist at [facility], who will admit patient. Treatments: Rocephin Flagyl Re-evaluations: 1:39 p.m.. Patient is still awake alert oriented x4. Still requiring supplemental oxygen. They do understand we are still waiting for hospitalist at [facility] to call back for continuity of care given his identity management consultant and relief master or both at [facility] Discussion: Appropriate for transfer for continuity of care as patient's identity management consultant and relief master is at [facility]. Antibiotics have been started. Patient requiring 5 L nasal cannula but protecting airway now. Diagnosis: Aspiration Discharge Plan Departure Patient Disposition: [facility] Clinical Impression: Aspiration into respiratory tract Qualifiers: Encounter type: initial encounter Qualified Code(s): T17.908A - Unspecified foreign body in respiratory tract, part unspecified causing other injury, initial encounter Prescriptions: No Action flecainide 150 MG tablet 150 mg OR BID Qty: 0 rosuvastatin [Crestor] 10 MG tablet 10 mg OR QDAY Qty: 0 diltiazem HCl [Cardizem] 120 MG tablet 120 mg OR QDAY Qty: 0 aspirin 325 MG tablet 325 mg OR QDAY Qty: 0 fluticasone propion-salmeterol [Advair Diskus] 250-50 mcg/dose blister with device 1 inh IH BID Qty: 0 finasteride 5 mg tablet 5 mg PO DAILY tamsulosin 0.4 mg capsule 0.8 mg PO BEDTIME Referrals: Mirza Sinha MD [Primary Care Provider] -
[2023-11-24 11:52] LABS: Add Manual Diff / Slide Review NO; Basophils Absolute Auto 0 /uL (0-100); Basophils Percent Auto 0.2 % (0-2); Eosinophils Absolute Auto 200 /uL (0-450); Eosinophils Percent Auto 0.7 % (2-4); Hematocrit 35.4 % (41-53); Hemoglobin 11.4 g/dL (13.5-17.5); Lymphocytes Absolute Auto 1500 /uL (1100-4500); Lymphocytes Percent Auto 7.5 % (25-40); Mean Corpuscular HGB Conc 32.1 % (30-36); Mean Corpuscular Hemoglobin 27.5 PG (26-34); Mean Corpuscular Volume 85.6 fL (80-100); Monocytes Absolute Auto 800 /uL (0-900); Neutrophils Absolute Auto 17900 /uL (1500-7000); Neutrophils Percent Auto 87.6 % (50-75); Platelet Count 317 X10^3/uL (150-400); Red Blood Cell Count 4.14 X10^6/uL (4.5-5.9); Red Cell Distribution Width 15.7 % (11.6-14.8); White Blood Cell Count 20.5 X10^3/uL (4.5-11.0)
[2023-11-24 11:59] LABS: Prothrombin Time 11.6 SECONDS (9.4-12.5)
[2023-11-24 12:06] LABS: Lactate (Lactic Acid) 2.3 mmol/L (0.7-2.1)
[2023-11-24 12:07] LABS: Alanine Aminotransferase 17 IU/L (<50); Albumin 4.8 g/dL (3.5-5.0); Albumin Globulin Ratio 1.5 (1.0-2.8); Alkaline Phosphatase 79 U/L (38-126); Aspartate Aminotransferase 23 IU/L (17-59); BUN Creatinine Ratio 23.5 (6-22); Bilirubin Total 0.6 mg/dL (0.2-1.3); Blood Urea Nitrogen 35 mg/dL (9-20); Calcium 9.2 mg/dL (8.4-10.2); Carbon Dioxide 21 mmol/L (22-32); Chloride 110 mmol/L (98-107); Estimated Glomerular Filt Rate 47 mL/min (>60); Globulin 3.1 g/dL (1.7-4.1); Glucose 131 mg/dL (80-110); HEMOLYSIS 42 (0-50); Potassium 4.4 mmol/L (3.4-5.1); Sodium 141 mmol/L (137-145); Total Protein 7.9 g/dL (6.3-8.2)
[2023-11-24 12:19] LABS: NT-proBNP (BNP-Adult 18+) 406 pg/mL (<450); Troponin I < 0.012 ng/mL (0.01-0.034)
[2023-11-24 13:06] LABS: Adenovirus Not Detected (Not Detect); B. parapertussis Not Detected (Not Detecte); Bordetella pertussis Not Detected (Not Detect); Chlamydophila pneumoniae Not Detected (Not Detect); Coronavirus 229E Not Detected (Not Detect); Coronavirus HKU1 Not Detected (Not Detect); Coronavirus NL 63 Not Detected (Not Detect); Coronavirus OC43 Not Detected (Not Detect); Human Metapneumovirus Not Detected (Not Detect); Human Rhinovirus/Enterovirus Not Detected (Not Detect); Influenza A Not Detected (Not Detect); Influenza B Not Detected (Not Detect); Mycoplasma pneumoniae Not Detected (Not Detect); Parainfluenza Virus 1 Not Detected (Not Detect); Parainfluenza Virus 2 Not Detected (Not Detect); Parainfluenza Virus 3 Not Detected (Not Detect); Parainfluenza Virus 4 Not Detected (Not Detect); Respiratory Syncytial Virus Not Detected (Not Detect); SARS- CoV-2 Not Detected (Not Detecte)
[2023-11-24 13:21] LABS: Reflexed Lactate in 2 Hours Y
[2023-11-24] MEDS: cefTRIAXone 2,000 MG in SODIUM CHLORIDE 0.9% 100 ML 200 MG IV (14:15)
[2023-11-24] MEDS: metroNIDAZOLE 500 MG/100 ML PIGGYBACK 100 MG IV (15:04)
== END 2023-11-24 18:15 | disposition short-term general hospital (02) ==
PROVIDERS: Emergency Provider Emergency Medicine; PCP Family Medicine
DX: T17.908A Unspecified foreign body in respiratory tract, part unspecified causing other injury, initial encounter (principal); R06.02 Shortness of breath; Z20.822 Contact with and (suspected) exposure to COVID-19
CPT/HCPCS: 36415; 71045; 80053; 82962; 83605; 83880; 84484; 85025; 85610; 87633; 93005; 96365; 96367; 96375; 99285; J0696; J2405

== ENCOUNTER → 2023-12-15 17:45 | Outpatient (ROUT) | payer OTHER, SELFPAY ==
[2023-12-15 17:52] LABS: Add Manual Diff / Slide Review NO; Basophils Absolute Auto 0 /uL (0-100); Basophils Percent Auto 0.2 % (0-2); Eosinophils Absolute Auto 300 /uL (0-450); Eosinophils Percent Auto 2.9 % (2-4); Hematocrit 33.8 % (41-53); Lymphocytes Absolute Auto 1800 /uL (1100-4500); Lymphocytes Percent Auto 19.6 % (25-40); Mean Corpuscular HGB Conc 32.7 % (30-36); Mean Corpuscular Hemoglobin 28.2 PG (26-34); Mean Corpuscular Volume 86.4 fL (80-100); Monocytes Absolute Auto 1000 /uL (0-900); Neutrophils Absolute Auto 6100 /uL (1500-7000); Neutrophils Percent Auto 66.3 % (50-75); Platelet Count 228 X10^3/uL (150-400); Red Blood Cell Count 3.91 X10^6/uL (4.5-5.9); Red Cell Distribution Width 15.6 % (11.6-14.8); White Blood Cell Count 9.2 X10^3/uL (4.5-11.0)
[2023-12-15 18:01] LABS: Alanine Aminotransferase 41 IU/L (<50)
== END ==
PROVIDERS: PCP Family Medicine; Visit Provider Internal Medicine Infectious Disease
DX: J47.1 Bronchiectasis with (acute) exacerbation (principal)
CPT/HCPCS: 84460; 85025

== ENCOUNTER → 2024-12-13 16:04 | Outpatient (CLI) | payer OTHER, SELFPAY ==
--- NOTE | 2024-12-13 16:08 | DI.RAD.S_ITS ---
PROCEDURE: XR CHEST 2V INDICATIONS: CHEST PAIN TECHNIQUE: 2 views of the chest were acquired. COMPARISON: [facility], , CHEST 2 VIEW, 11/29/2014, 11:39. [facility], , XR CHEST 1V, 10/17/2020, 10:42. [facility], , XR CHEST 2V, 12/21/2018, 13:57. [facility], , XR CHEST 1V, 11/24/2023, 11:32. FINDINGS: Surgical changes and devices: None. 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 No acute infiltrates. No pleural effusions or pneumothorax. Mediastinum: Mediastinal contours are normal. Heart size is normal. Bones and chest wall: No suspicious bony abnormalities. Soft tissues appear unremarkable. IMPRESSION: Stable findings of chronic pulmonary fibrosis. No acute focal infiltrates. Dictated by: Nakul Riley M.D. on 12/14/2024 at 9:40 Approved by: Nakul Riley M.D. on 12/14/2024 at 9:43
== END ==
PROVIDERS: PCP Family Medicine; Referring Provider Family Medicine; Visit Provider Family Medicine
DX: A30 Leprosy [Hansen's disease] (principal); J84.112 Idiopathic pulmonary fibrosis
CPT/HCPCS: 71046

== ENCOUNTER 2025-03-30 09:52 | Observation (INO) | payer OTHER, SELFPAY ==
[2025-03-30] VITALS (9 sets, daily range): BP systolic 106–125; BP diastolic 57–73; PULSE 58–69; RESP 16–23; TEMP 36.3–36.4; O2SAT 91–98; BMI 25.8; BMI 25.9
--- NOTE | 2025-03-30 10:09 | DI.RAD.S_ITS ---
PROCEDURE: XR CHEST 1V INDICATIONS: Shortness of breath TECHNIQUE: One view of the chest was acquired. COMPARISON: [facility], CR, XR CHEST 2V, 12/13/2024, 16:08. FINDINGS: Surgical changes and devices: None. Lungs and pleura: Underlying fibrotic change in the left mid and lower lung field with possible superimposed acute consolidation. Mediastinum: Mediastinal contours appear normal. Heart size is normal. Bones and chest wall: No suspicious bony lesions. Overlying soft tissues appear unremarkable. IMPRESSION: Question development of pneumonia in an area of pulmonary fibrosis in the left lower lung field. Comment: Progress films are recommended until clear. Dictated by: Nakul Riley M.D. on 03/30/2025 at 10:51 Approved by: Nakul Riley M.D. on 03/30/2025 at 10:54
--- NOTE | 2025-03-30 10:13 | ED.WEAKNESS ---
HPI - Weakness General Chief complaint: Weakness Stated complaint: unable to walk;history of sepsis Time Seen by Provider: 03/30/25 09:56 History of Present Illness HPI Narrative: 85-year-old gentleman history of legally blind, atrial fibrillation on aspirin, hypertension, dyslipidemia, presents with body aches with ambulation, subjective fever, weakness, difficulty ambulating, and mucus drainage. Patient denies active chest pain, back pain, abdominal pain, blood in the urine, or stool, sick contacts, nausea, vomiting, diarrhea. Other than what is stated 14 point review of system is negative. Related Data Home Medications ?Medication ?Instructions ?Recorded ?Confirmed aspirin 325 mg tablet 325 mg OR QDAY ##0 06/02/16 08/26/23 diltiazem HCl 120 mg tablet 120 mg OR QDAY ##0 06/02/16 08/26/23 (Cardizem) flecainide 150 mg tablet 150 mg OR BID ##0 06/02/16 08/26/23 fluticasone 250 mcg-salmeterol 50 1 inh IH BID ##0 06/02/16 08/26/23 mcg/dose blistr powdr for inhalation (Advair Diskus) rosuvastatin 10 mg tablet (Crestor) 10 mg OR QDAY ##0 06/02/16 08/26/23 finasteride 5 mg tablet 5 mg PO DAILY 10/17/20 08/26/23 tamsulosin 0.4 mg capsule 0.8 mg PO BEDTIME 08/26/23 08/26/23 Allergies Allergy/AdvReac Type Severity Reaction Status Date / Time grass pollen (GRASS POLLEN) Allergy Unknown Verified 03/30/25 10:11 pollen extracts (POLLEN Allergy Unknown Verified 03/30/25 10:11 EXTRACTS) dust Allergy Unknown Uncoded 03/30/25 10:11 Review of Systems Review of Systems ROS Unobtainable: All systems reviewed & are unremarkable except as noted in HPI and below Patient History Medical History Family history of prostate cancer History of bacteremia History of UTI BPH w urinary obs/LUTS Hyperlipidemia High blood pressure Chronic a-fib Bronchiectasis Gout Blind Family History Father Blood disease Cancer Glaucoma Brother Cancer Social History marital status: number of children: 2 Smoking Status: Never smoker alcohol intake: current caffeine: Yes alcohol intake frequency: a few times a month Exam Narrative Exam Narrative: GENERAL: [85] year old patient appears stated age. Well-developed patient, in mild distress. HEAD: Atraumatic. Normocephalic. EYES: Pupils equal round and reactive. Extraocular motions intact. No scleral icterus. No injection or drainage. ENT: Nose without bleeding, purulent drainage. Throat without erythema, tonsillar hypertrophy or exudate. Airway patent. NECK: Trachea midline. Non tender CARDIOVASCULAR: Regular rate and rhythm without murmurs, gallops, or rubs. RESPIRATORY: Clear to auscultation. Breath sounds equal bilaterally. No wheezes, rales, or rhonchi. GASTROINTESTINAL: Abdomen soft, non-tender, nondistended. EXTREMITIES: No edema or joint tenderness. BACK: Nontender without deformity or crepitance. No flank tenderness. NEURO: AOx3. SKIN: No rash or erythema of visible areas Initial Vital Signs Initial Vital Signs: Vital Signs Temperature 97.4 F L 03/30/25 10:10 Pulse Rate 66 03/30/25 10:10 Respiratory Rate 20 03/30/25 10:10 Blood Pressure 125/71 03/30/25 10:10 Pulse Oximetry 95 03/30/25 10:10 Oxygen Delivery Method Room Air 03/30/25 10:10 Course Orders Ordered: ED Orders 03/30/25 10:09 XR chest 1V Stat EKG-12 Lead Stat 03/30/25 10:23 EKG-12 Lead Stat 03/30/25 10:30 Complete Blood Count AUTO DIFF Stat Comprehensive Metabolic Panel Stat Covid-19 + FLU A/B + RSV - PCR Stat Lactate (Lactic Acid) Stat Lipase Stat NT-proBNP (BNP-Adult 18+) Stat Prothrombin Time INR Stat Troponin & CK Cardiac Panel Stat 03/30/25 10:50 Blood Culture Stat 03/30/25 11:21 Troponin I Stat Lactated Ringer's (Lactated Ringers) 1,000 mls @ 1,000 mls/hr IV BOLUS ONE Stop: 03/30/25 12:21 Last Admin: 03/30/25 12:09 Dose: 1,000 mls/hr Documented By: ES Discontinued Medications Ceftriaxone Sodium 1,000 mg/ (Sodium Chloride) 100 mls @ 200 mls/hr IV NOW ONE Stop: 03/30/25 11:21 Last Infusion: 03/30/25 12:06 Dose: Infused Documented By: Admin: 03/30/25 11:35 Dose: 200 mls/hr Documented By: NYDIA Azithromycin 500 mg/ Dextrose 250 mls @ 250 mls/hr IV NOW ONE Stop: 03/30/25 11:21 Last Admin: 03/30/25 12:08 Dose: 250 mls/hr Documented By: NYDIA Vital Signs Vital signs: Vital Signs - 8 hr 03/30/25 10:10 Temperature 97.4 F L Pulse Rate 66 Respiratory Rate 20 Blood Pressure 125/71 Pulse Oximetry 95 Oxygen Delivery Method Room Air MDM - Weakness Lab Data 03/30/25 10:30 03/30/25 10:30 Labs: Lab Results 03/30/25 03/30/25 Range/Units 10:30 10:30 WBC 14.0 H (4.5-11.0) X10^3/uL RBC 3.77 L (4.5-5.9) X10^6/uL Hgb 10.4 L (13.5-17.5) g/dL Hct 31.6 L (41-53) % MCV 84.0 (80-100) fL MCH 27.6 (26-34) PG MCHC 32.8 (30-36) % RDW 15.5 H (11.6-14.8) % Plt Count 287 (150-400) X10^3/uL Neut % (Auto) 73.0 (50-75) % Lymph % (Auto) 13.6 L (25-40) % [place] % (Auto) 12.8 (3-14) % Eos % (Auto) 0.2 L (2-4) % Baso % (Auto) 0.4 (0-2) % Neut # (Auto) 15767 H (2751-8165) /uL Lymph # (Auto) 1900 (8919-3688) /uL [place] # (Auto) 1800 H (0-900) /uL Eos # (Auto) 0 (0-450) /uL Baso # (Auto) 100 (0-100) /uL PT 12.7 H (9.4-12.5) SECONDS INR 1.1 (0.9-1.3) Sodium 138 (137-145) mmol/L Potassium 4.4 (3.4-5.1) mmol/L Chloride 106 (98-107) mmol/L Carbon Dioxide 18 L (22-32) mmol/L BUN 31 H (9-20) mg/dL Creatinine 1.65 H (0.66-1.25) mg/dL Estimated GFR 41 L (>60) mL/min BUN/Creatinine Ratio 18.8 (6-22) Glucose 99 (70-99) mg/dL Lactate 0.7 (0.7-2.1) mmol/L Calcium 9.2 (8.4-10.2) mg/dL Total Bilirubin 0.6 (0.2-1.3) mg/dL AST 17 (17-59) IU/L ALT 13 (<50) IU/L Alkaline Phosphatase 89 (38-126) U/L Total Creatine Kinase 21 L (55-170) U/L Troponin I Cancelled < 0.012 NT-Pro-B Natriuret Pep 993 H (<450) pg/mL Total Protein 7.3 (6.3-8.2) g/dL Albumin 4.1 (3.5-5.0) g/dL Globulin 3.2 (1.7-4.1) g/dL Albumin/Globulin Ratio 1.3 (1.0-2.8) Lipase 45 (23-300) U/L SARS-CoV-2 (PCR) Negative (Negative) Influenza A (RT-PCR) Flu a negative (NEGATIVE) Influenza B (RT-PCR) Flu b negative (NEGATIVE) RSV (PCR) Negative (Negative) ECG Data Interpretation: NSR LAD RBBB HR 61 KS 1206 QRS [address]-t wave change No previous ekg to compare MDM Narrative Medical decision making narrative: All lab work, vital signs, nurse triage note, medication list, previous ER visits, and all imaging studies reviewed. Chest x-ray showed pushing development pneumonia in area of pulmonary fibrosis in the left lung mckay. White count of 14 hemoglobin 10.4 BUN 31 creatinine 1.65 troponin normal and pain 993. Patient given lactated ringer 1 L bolus Rocephin and Zithromax here. Case discussed with Dr. Gallagher who has graciously accepted the patient for inpatient admission observation Discharge Plan Departure Patient Disposition: Admitted as Observation Clinical Impression: Pneumonia Qualifiers: Pneumonia type: due to unspecified organism Laterality: left Lung location: lower lobe of lung Qualified Code(s): J18.9 - Pneumonia, unspecified organism Admit Date/Time: 03/30/25 12:17 Admit Provider: Giovanny Gallagher V
[2025-03-30 10:39] LABS: Add Manual Diff / Slide Review NO; Hematocrit 31.6 % (41-53); Hemoglobin 10.4 g/dL (13.5-17.5); Lymphocytes Absolute Auto 1900 /uL (1100-4500); Mean Corpuscular HGB Conc 32.8 % (30-36); Mean Corpuscular Hemoglobin 27.6 PG (26-34); Mean Corpuscular Volume 84.0 fL (80-100); Platelet Count 287 X10^3/uL (150-400)
[2025-03-30 10:46] LABS: INR 1.1 (0.9-1.3); Prothrombin Time 12.7 SECONDS (9.4-12.5)
[2025-03-30 10:51] LABS: Alanine Aminotransferase 13 IU/L (<50); Albumin 4.1 g/dL (3.5-5.0); Albumin Globulin Ratio 1.3 (1.0-2.8); Alkaline Phosphatase 89 U/L (38-126); Blood Urea Nitrogen 31 mg/dL (9-20); Calcium 9.2 mg/dL (8.4-10.2); Carbon Dioxide 18 mmol/L (22-32); Chloride 106 mmol/L (98-107); Estimated Glomerular Filt Rate 41 mL/min (>60); Globulin 3.2 g/dL (1.7-4.1); Glucose 99 mg/dL (70-99); HEMOLYSIS < 15 (0-50); Potassium 4.4 mmol/L (3.4-5.1); Sodium 138 mmol/L (137-145); Total Protein 7.3 g/dL (6.3-8.2)
[2025-03-30 10:52] LABS: Creatine Kinase 21 U/L (55-170); Lactate (Lactic Acid) 0.7 mmol/L (0.7-2.1); Lipase 45 U/L (23-300)
--- NOTE | 2025-03-30 10:57 | EKG_ITS ---
[address] [address] Test Date: 2025-03-30 Pat Name: Gregg Leonard Department: Room: Gender: Male [employer]: VENUS : 1940 Requested By: Order Number: [id number] Reading MD: Jeffery Collins Measurements Intervals [place] Rate: 61 P: 32 SC: 206 QRS: -43 QRSD: 134 T: 16 QT: 428 QTc: 430 Interpretive Statements Normal sinus rhythm Left axis deviation Right bundle branch block Minimal voltage criteria for LVH, may be normal variant ( R in aVL ) Electronically Signed On 04-02-2025 16:45:49 PDT by Jeffrey Collins
[2025-03-30 11:01] LABS: NT-proBNP (BNP-Adult 18+) 993 pg/mL (<450)
[2025-03-30 11:04] LABS: Troponin I < 0.012 ng/mL (0.01-0.034)
[2025-03-30 11:16] LABS: Influenza A - CEPHEID Flu A NEGATIVE (NEGATIVE); Influenza B - CEPHEID Flu B NEGATIVE (NEGATIVE)
[2025-03-30 11:37] LABS: COVID-19 CEPHEID 4-PLEX PCR Negative (Negative)
[2025-03-30] MEDS: AZITHROMYCIN 500 MG in DEXTROSE 5% IN WATER 250 ML 250 MG IV (12:08)
[2025-03-30] MEDS: LACTATED RINGERS 1,000 ML 1000 ML IV (12:09)
[2025-03-30 13:57] LABS: Troponin I < 0.012 ng/mL (0.01-0.034)
--- NOTE | 2025-03-30 14:17 | P.HP_ITS ---
History of Present Illness History of Present Illness Date Patient Seen: 03/30/25 Time Patient Seen: 14:30 Chief complaint: unable to walk;history of sepsis Narrative: ER note: 85-year-old gentleman history of legally blind, atrial fibrillation on aspirin, hypertension, dyslipidemia, presents with body aches with ambulation, subjective fever, weakness, difficulty ambulating, and mucus drainage. Patient denies active chest pain, back pain, abdominal pain, blood in the urine, or stool, sick contacts, nausea, vomiting, diarrhea. Other than what is stated 14 point review of system is negative. Interval history: The patient notes a history of bronchiectasis dating to childhood, when he underwent a left lower lobectomy at age 12. He performs postural drainage once or twice daily. He is followed by Dr. Desai of pulmonology. He notes since a Watchman device was placed in November of 2023 he has had respiratory difficulty with more frequent bouts of bronchiectasis. He continues on prophylactic azithromycin. 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 [facility] Medical History Blind BPH w urinary obs/LUTS Bronchiectasis Chronic a-fib Family history of prostate cancer Gout High blood pressure History of bacteremia History of UTI Hyperlipidemia Family History Father Blood disease Cancer Glaucoma Brother Cancer Social History marital status: number of children: 2 household members: spouse and children Smoking Status: Former smoker alcohol intake: current caffeine: Yes Meds Home Medications and Allergies Home Medications ?Medication ?Instructions ?Recorded ?Confirmed ?Type aspirin 325 mg tablet 325 mg OR QDAY ##0 06/02/16 03/30/25 History diltiazem HCl 120 mg tablet 120 mg OR QDAY ##0 6 08/26/23 History (Cardizem) flecainide 150 mg tablet 150 mg OR BID ##0 06/02/16 0 03/30/25 History fluticasone 250 mcg-salmeterol 50 1 inh IH BID ##0 03/1008/26/23 History mcg/dose blistr powdr for inhalation (Advair Diskus) rosuvastatin 10 mg tablet (Crestor) 5 mg OR QDAY ##0 1 08/02/15 03/30/25 History finasteride 5 mg tablet 5 mg PO DAILY 10/17/2003/30 History tamsulosin 0.4 mg capsule 0.8 mg PO BEDTIME 08/26/23 0 03/30/25 History albuterol sulfate 1.25 mg/3 mL mg DAILY PRN shortness of breath 03/30/25 History solution for nebulization or wheezing azithromycin 250 mg tablet 250 mg PO 3XW 03/30/2512/17 History budesonide-formoterol inhalation 03/30/25 History celecoxib .ROUTE 03/30/25 History magnesium 03/30/25 History ofqnsoleg-vcpmtv-rrlrsc salt See Rx Instructions PO .C OMPLEX 03/30/25 03/30/25 History Allergies Allergy/AdvReac Type Severity Reaction Status Date / Time grass pollen (GRASS POLLEN) Allergy Unknown Verified 03/30/25 10:11 pollen extracts (POLLEN Allergy Unknown Verified 03/30/25 10:11 EXTRACTS) dust Allergy Unknown Uncoded 03/30/25 10:11 Exam Vital Signs (past 8 hours): - 03/30/25 10:10 03/30/25 10:10 03/30/25 10:10 Temperature 97.4 F L Pulse Rate 66 69 Respiratory Rate 20 Blood Pressure 125/71 125/71 Pulse Oximetry 95 96 Oxygen Delivery Method Room Air 03/30/25 10:30 03/30/25 10:30 03/30/25 11:00 Temperature Pulse Rate 63 60 Respiratory Rate 21 21 Blood Pressure 115/69 Pulse Oximetry 95 95 Oxygen Delivery Method 03/30/25 11:00 03/30/25 11:30 03/30/25 11:30 Temperature Pulse Rate 61 Respiratory Rate 23 Blood Pressure 109/59 L 107/65 Pulse Oximetry 96 Oxygen Delivery Method 03/30/25 12:00 03/30/25 12:00 03/30/25 12:30 Temperature Pulse Rate 58 L 58 L Respiratory Rate 22 23 Blood Pressure 116/65 Pulse Oximetry 95 91 Oxygen Delivery Method 03/30/25 12:30 03/30/25 13:00 03/30/25 13:00 Temperature Pulse Rate 59 L Respiratory Rate Blood Pressure 108/64 106/57 L Pulse Oximetry 97 Oxygen Delivery Method Oxygen Delivery Method Room Air Narrative Exam Narrative: GENERAL: This is a well-nourished, well-developed patient, in no apparent distress. HEAD: Atraumatic. Normocephalic. No temporal or scalp tenderness. EYES: Pupils equal round and reactive. Extraocular motions intact. Legally blind. No scleral icterus. No injection or drainage. ENT: Mucous membranes pink and moist. NECK: Trachea midline. No JVD, bruits or lymphadenopathy. Supple, nontender, no meningeal signs. CARDIOVASCULAR: Regular rate and rhythm without murmurs, gallops, or rubs. RESPIRATORY: Bibasilar coarse breath sounds, scattered rhonchi. GASTROINTESTINAL: Abdomen soft, non-tender, nondistended. EXTREMITIES: No clubbing, cyanosis, or edema. NEUROLOGIC: Alert, oriented, speech fluent, full upper and lower motor strength, no focal deficits evident. DERMATOLOGIC: No rashes or skin lesions. Objective ECG Impression: EKG 03/30/2025: Normal sinus rhythm at 61 beats per minute, left axis deviation, right bundle branch block, borderline LVH Imaging *: Radiologist's impression: Chest x-ray 03/30/2025: Question development of pneumonia in an area of pulmonary fibrosis in the left lower lung field. Comment: Progress films are recommended until clear. Labs 03/30/25 10:30 03/30/25 10:30 Labs: Laboratory Results - last 24 hr 03/30/25 03/30/25 03/30/25 10:30 10:30 13:25 WBC 14.0 H RBC 3.77 L Hgb 10.4 L Hct 31.6 L MCV 84.0 MCH 27.6 MCHC 32.8 RDW 15.5 H Plt Count 287 Neut % (Auto) 73.0 Lymph % (Auto) 13.6 L [place] % (Auto) 12.8 Eos % (Auto) 0.2 L Baso % (Auto) 0.4 Neut # (Auto) 12385 H Lymph # (Auto) 1900 [place] # (Auto) 1800 H Eos # (Auto) 0 Baso # (Auto) 100 PT 12.7 H INR 1.1 Sodium 138 Potassium 4.4 Chloride 106 Carbon Dioxide 18 L BUN 31 H Creatinine 1.65 H Estimated GFR 41 L BUN/Creatinine Ratio 18.8 Glucose 99 Lactate 0.7 Calcium 9.2 Total Bilirubin 0.6 AST 17 ALT 13 Alkaline Phosphatase 89 Total Creatine Kinase 21 L Troponin I Cancelled < 0.012 < 0.012 NT-Pro-B Natriuret Pep 993 H Total Protein 7.3 Albumin 4.1 Globulin 3.2 Albumin/Globulin Ratio 1.3 Lipase 45 SARS-CoV-2 (PCR) Negative Influenza A (RT-PCR) Flu a negative Influenza B (RT-PCR) Flu b negative RSV (PCR) Negative Assessment & Plan Assessment & Plan narrative: 1. Left lower lobe pneumonia, community-acquired, in the setting of chronic bronchiectasis. Treat with IV ceftriaxone. Continue routine home azithromycin. Follow clinically. Consult respiratory therapy for bronchodilators. 2. Paroxysmal atrial fibrillation. Currently in sinus rhythm. Status post Watchman device. 3. Hyperlipidemia. Continue routine statin therapy. 4. BPH. Continue routine tamsulosin. Plan: - admit to observation - ceftriaxone IV - continue azithromycin - consult respiratory therapy - consult Physical therapy - possible discharge home tomorrow if doing well DVT prophylaxis: Place sequential compression devices. He declines anticoagulation given concern of fall risk with his blindness. Code status: Do not resuscitate. He states he has a POLST form stating this wish at home. His is his surrogate decision maker. Quality VTE Deep Vein Thrombosis/Pulmonary Embolism Present on Admission: No MIPS - Admit I confirm the patient?s Advance Care Plan is present, Code status is documented, Surrogate decision maker is in patient?s record [If Yes, STOP here]: Yes [facility] - Meds 'Current medications' to include all prescriptions, bcve-ktz-fvcdmad products, herbals, cannabis/cannabidiol products, and vitamin/mineral/dietary (nutritional) supplements. I have utilized all available resources to obtain, update, or review the patient?s current medications. [If Yes, STOP here]: Yes PROFEE Tailer Off Document charge(s): No Charge Codes Initial inpatient/observation care: 61063
[2025-03-30] MEDS: FLECAINIDE 100 MG TABLET 150 MG PO (21:44)
[2025-03-30] MEDS: TAMSULOSIN 0.4 MG CAPSULE 0.8 MG PO (21:46)
[2025-03-30] MEDS: ALBUTEROL 1.25 MG/3 ML NEB (PEDIATRIC) INH (22:42)
[2025-03-30] MEDS: BUDESONIDE 0.5 MG/2 ML NEB INH (22:43)
[2025-03-31 01:00] VITALS: BP 135/80; PULSE 72; RESP 16; TEMP 37.4; O2SAT 97
[2025-03-31] MEDS: ACETAMINOPHEN 325 MG TABLET 650 MG PO (04:30)
[2025-03-31 06:01] LABS: Add Manual Diff / Slide Review NO; Hematocrit 30.4 % (41-53); Hemoglobin 10.1 g/dL (13.5-17.5); Lymphocytes Absolute Auto 1900 /uL (1100-4500); Mean Corpuscular HGB Conc 33.3 % (30-36); Mean Corpuscular Hemoglobin 27.8 PG (26-34); Mean Corpuscular Volume 83.6 fL (80-100); Platelet Count 285 X10^3/uL (150-400)
[2025-03-31 06:14] LABS: Blood Urea Nitrogen 27 mg/dL (9-20); Calcium 8.9 mg/dL (8.4-10.2); Carbon Dioxide 17 mmol/L (22-32); Chloride 106 mmol/L (98-107); Estimated Glomerular Filt Rate 46 mL/min (>60); Glucose 86 mg/dL (70-99); HEMOLYSIS < 15 (0-50); Potassium 4.5 mmol/L (3.4-5.1); Sodium 137 mmol/L (137-145)
[2025-03-31 07:32] VITALS: PULSE 66; RESP 18; O2SAT 95
[2025-03-31] MEDS: BUDESONIDE 0.5 MG/2 ML NEB INH (07:32)
[2025-03-31] MEDS: ALBUTEROL 1.25 MG/3 ML NEB (PEDIATRIC) INH (07:32)
[2025-03-31 08:00] VITALS: BP 133/78; PULSE 64; RESP 24; TEMP 37.3; O2SAT 95
[2025-03-31] MEDS: ATORVASTATIN 20 MG TABLET 10 MG PO (09:53)
[2025-03-31] MEDS: ASPIRIN EC 325 MG TABLET PO (09:53)
[2025-03-31] MEDS: FINASTERIDE 5 MG TABLET PO (09:54)
[2025-03-31] MEDS: FLECAINIDE 100 MG TABLET 150 MG PO (09:54)
--- NOTE | 2025-03-31 10:56 | PM.DS.IH.1 ---
History of Present Illness History of Present Illness Date Patient Seen: 03/31/25 Time Patient Seen: 08:57 Chief complaint: unable to walk;history of sepsis Narrative: 85-year-old gentleman history of legally blind, atrial fibrillation on aspirin, hypertension, dyslipidemia, presents with body aches with ambulation, subjective fever, weakness, difficulty ambulating, and mucus drainage. Patient denies active chest pain, back pain, abdominal pain, blood in the urine, or stool, sick contacts, nausea, vomiting, diarrhea. Other than what is stated 14 point review of system is negative. The patient notes a history of bronchiectasis dating to childhood, when he underwent a left lower lobectomy at age 12. He performs postural drainage once or twice daily. He is followed by Dr. Desai of pulmonology. He notes since a Watchman device was placed in November of 2023 he has had respiratory difficulty with more frequent bouts of bronchiectasis. He continues on prophylactic azithromycin. 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 Discharge Providers Provider Date of admission: 03/30/25 12:17 Discharge Date: 03/31/25 Primary care physician: Mirza Sinha MD Consults: 03/30/25 16:29 Consult to Physical Therapy Evaluate & Treat Comment: Physician Instructions: Evaluate and Treat Discharge provider: Giovanny Gallagher MD Summary Hospital Course Discharge Diagnosis: 1. Left lower lobe pneumonia, community-acquired, in the setting of chronic bronchiectasis. 2. Paroxysmal atrial fibrillation. 3. Hyperlipidemia. 4. BPH. Hospital Course: The patient was admitted and treated with broad-spectrum antibiotics and frequently administered bronchodilators through respiratory therapy. He was initially weak though felt significantly better over the 1st 24 hours, and was able to get up and walk with minimal assistance with aids and physical therapy. No other issues arose. Status at Discharge Cognitive/behavioral status at discharge: oriented Functional status at discharge: uses cane/walker Overall status at discharge: patient is progressing back to baseline Time Spent with Patient Time spent: Less than 30 minutes Exam Vital Signs (past 8 hours): - 03/31/25 07:32 03/31/25 08:00 Temperature 99.1 F Pulse Rate 66 64 Respiratory Rate 18 24 Blood Pressure 133/78 Pulse Oximetry 95 95 Oxygen Delivery Method Room Air Oxygen Flow Rate 0 Fraction of Inspired Oxygen 21 Fraction of Inspired Oxygen 21 SaO2/FiO2 Ratio 452 Oxygen Delivery Method Room Air Oxygen Flow Rate 0 Narrative Exam Narrative: GENERAL: This is a well-nourished, well-developed patient, in no apparent distress. HEAD: Atraumatic. Normocephalic. No temporal or scalp tenderness. EYES: Pupils equal round and reactive. Extraocular motions intact. Legally blind. No scleral icterus. No injection or drainage. ENT: Mucous membranes pink and moist. NECK: Trachea midline. No JVD, bruits or lymphadenopathy. Supple, nontender, no meningeal signs. CARDIOVASCULAR: Regular rate and rhythm without murmurs, gallops, or rubs. RESPIRATORY: Bibasilar coarse breath sounds, scattered rhonchi. GASTROINTESTINAL: Abdomen soft, non-tender, nondistended. EXTREMITIES: No clubbing, cyanosis, or edema. NEUROLOGIC: Alert, oriented, speech fluent, full upper and lower motor strength, no focal deficits evident. DERMATOLOGIC: No rashes or skin lesions. Objective ECG Impression: EKG 03/30/2025: Normal sinus rhythm at 61 beats per minute, left axis deviation, right bundle branch block, borderline LVH Imaging *: Radiologist's impression: Chest x-ray 03/30/2025: Question development of pneumonia in an area of pulmonary fibrosis in the left lower lung field. Comment: Progress films are recommended until clear. Labs 03/31/25 05:24 03/31/25 05:24 Labs: Laboratory Results - last 24 hr 03/30/25 03/30/25 03/30/25 10:30 10:30 13:25 WBC RBC Hgb Hct MCV MCH MCHC RDW Plt Count Neut % (Auto) Lymph % (Auto) [place] % (Auto) Eos % (Auto) Baso % (Auto) Neut # (Auto) Lymph # (Auto) [place] # (Auto) Eos # (Auto) Baso # (Auto) Sodium 138 Potassium 4.4 Chloride 106 Carbon Dioxide 18 L BUN 31 H Creatinine 1.65 H Estimated GFR 41 L BUN/Creatinine Ratio 18.8 Glucose 99 Calcium 9.2 Total Bilirubin 0.6 AST 17 ALT 13 Alkaline Phosphatase 89 Troponin I Cancelled < 0.012 < 0.012 NT-Pro-B Natriuret Pep 993 H Total Protein 7.3 Albumin 4.1 Globulin 3.2 Albumin/Globulin Ratio 1.3 SARS-CoV-2 (PCR) Negative Influenza A (RT-PCR) Flu a negative Influenza B (RT-PCR) Flu b negative RSV (PCR) Negative 03/31/25 05:24 WBC 12.7 H RBC 3.63 L Hgb 10.1 L Hct 30.4 L MCV 83.6 MCH 27.8 MCHC 33.3 RDW 15.5 H Plt Count 285 Neut % (Auto) 70.3 Lymph % (Auto) 15.0 L [place] % (Auto) 14.3 H Eos % (Auto) 0.1 L Baso % (Auto) 0.3 Neut # (Auto) 8900 H Lymph # (Auto) 1900 [place] # (Auto) 1800 H Eos # (Auto) 0 Baso # (Auto) 0 Sodium 137 Potassium 4.5 Chloride 106 Carbon Dioxide 17 L BUN 27 H Creatinine 1.49 H Estimated GFR 46 L BUN/Creatinine Ratio 18.1 Glucose 86 Calcium 8.9 Total Bilirubin AST ALT Alkaline Phosphatase Troponin I NT-Pro-B Natriuret Pep Total Protein Albumin Globulin Albumin/Globulin Ratio SARS-CoV-2 (PCR) Influenza A (RT-PCR) Influenza B (RT-PCR) RSV (PCR) [facility] Medical History Blind BPH w urinary obs/LUTS Bronchiectasis Chronic a-fib Family history of prostate cancer Gout High blood pressure History of bacteremia History of UTI Hyperlipidemia Family History Father Blood disease Cancer Glaucoma Brother Cancer Social History marital status: number of children: 2 household members: spouse and children Smoking Status: Former smoker alcohol intake: current caffeine: Yes Discharge Plan Discharge Plan Patient Disposition: Home Provider Discharge Comment: Followup with Dr. Sinha 1 week Discharge orders & Medications Prescriptions: New cefuroxime axetil 500 mg tablet 500 mg PO BID Qty: 12 0RF Continued flecainide 150 MG tablet 150 mg OR BID Qty: 0 Patient Comments: 2 in the morning and 1 at night rosuvastatin [Crestor] 10 MG tablet 5 mg OR QDAY Qty: 0 Rx Instructions: 5mg 1tab daily diltiazem HCl [Cardizem] 120 MG tablet 120 mg OR QDAY Qty: 0 aspirin 325 MG tablet 325 mg OR QDAY Qty: 0 fluticasone propion-salmeterol [Advair Diskus] 250-50 mcg/dose blister with device 1 inh IH BID Qty: 0 finasteride 5 mg tablet 5 mg PO DAILY tamsulosin 0.4 mg capsule 0.8 mg PO BEDTIME npsaekpyy-ihgumu-zwwfvm salt [Cardia] See Rx Instructions PO .COMPLEX Rx Instructions: cardia x1 daily orally; celecoxib [Celebrex] .ROUTE Rx Instructions: 300 mg magnesium Rx Instructions: 400 mg 1 cap daily budesonide-formoterol [Symbicort] inhalation Rx Instructions: 2 puffs in morning as needed at night azithromycin 250 mg tablet 250 mg PO 3XW Rx Instructions: 250 mg 3 times a week mon,wed,wed albuterol sulfate 1.25 mg/3 mL solution for nebulization DAILY PRN (Reason: shortness of breath or wheezing) Rx Instructions: 3 x day Follow up/Referrals: Mirza Sinha MD [Primary Care Provider, [facility]] Visit Report/Discharge Packet Stand Alone Forms: Patient Portal/API, Stroke Signs & Symptoms Discharge Data Primary Care Provider: Mirza Sinha Attending Provider: Giovanny Gallagher V Admit Date/Time: 03/30/25 12:17 Quality VTE Deep Vein Thrombosis/Pulmonary Embolism Present on Admission: No MIPS - Admit I confirm the patient?s Advance Care Plan is present, Code status is documented, Surrogate decision maker is in patient?s record [If Yes, STOP here]: Yes MIPS - Meds 'Current medications' to include all prescriptions, uicb-bul-tumlkvg products, herbals, cannabis/cannabidiol products, and vitamin/mineral/dietary (nutritional) supplements. I have utilized all available resources to obtain, update, or review the patient?s current medications. [If Yes, STOP here]: Yes MIPS - DC The patient has a history of heart transplant or Left Ventricular Assist Device (LVAD). If yes, STOP here.: No The patient has current or prior documentation of left ventricular ejection fraction (LVEF) less than or equal to 40%, or moderate or severely depressed left ventricular systolic function.: No A. The patient was prescribed or already taking an Angiotensin-Converting Enzyme (JOHNATHON) Inhibitor, or Angiotensin Receptor Bety (ARB).: No B. The patient was prescribed or already taking a beta-bety. [If Yes to Both A & B, STOP here]: No Patient not prescribed/taking JOHNATHON or ARB, no reason given.: No Patient not prescribed/taking beta-bety, no reason given.: No PROFEE Charge Codes Discharge inpatient/observation: [id number]
--- NOTE | 2025-03-31 11:30 | PT.IIE ---
Medical History (Last Reviewed 03/31/25 @ 10:59 by Giovanny Gallagher MD) Blind BPH w urinary obs/LUTS Bronchiectasis Chronic a-fib Family history of prostate cancer Gout High blood pressure History of bacteremia History of UTI Hyperlipidemia Physical Therapy Inpatient Evaluation/Re-Eval M1 PT/OT-IP Prior Functional Status Start: 03/31/25 12:17 Freq: NEEDED Status: Active Protocol: Document 03/31/25 11:30 AB (Rec: 03/31/25 12:34 AB Desktop) Medical Review Prior Functional Status Medical History Yes Reviewed Communication able to make needs known Mobility and Gait pt stated that he is modified independent with all mobilities and ambulation using his white cane and occasionally uses a trekking pole + white cane for outdoor uneven surface ambulation Social History Household Members spouse,family Living Arrangements House Number of Floors ( Two Floors Floors) Number of Stairs To pt stays on main level of the house Enter/Railing? no steps to enter from the garage has 13 steps with bilateral wide rails and can only hold on to one rail at a time (pt prefers using R rail) from the front door; pt stated that he prefers this way to get in/out of the house Home Environment High Toilet,Tub/Shower Home Equipment Shower Seat without Backrest,Hand Held Shower,Grab Bars Near Toilet,Grab Bars In Shower Additional Social pt lives with spouse, daughter and VIN History Comment M2 PT-IP Current Condition Start: 03/31/25 12:17 Freq: NEEDED Status: Active Protocol: Document 03/31/25 11:30 AB (Rec: 03/31/25 12:34 AB Desktop) Physical Therapy Current Condition Current Condition Evaluation Date 03/31/25 Treatment Diagnosis PNA; difficulty in walking Onset Date 03/30/25 M3 PT-IP Subjective Start: 03/31/25 12:17 Freq: NEEDED Status: Active Protocol: Document 03/31/25 11:30 AB (Rec: 03/31/25 12:34 AB Desktop) Subjective Physical Therapy Visit Type Type Initial Evaluation Visit Start Time 11:30 Visit Stop Time 12:15 Number of CENTRIFUGE SEPARATOR TENDER Visits 0 Physical Therapy Visit Comments Patient Comments agreeable to do PT M4 PT-IP Mobility and Gait Start: 09/06/25 12:17 Freq: NEEDED Status: Active Protocol: Document 03/31/25 11:30 AB (Rec: 03/31/25 12:34 AB Desktop) PT-Bed Mobility Assessment Supine to Sit Supine to Sit Contact Guard Assistance,Minimal Assistance,1 Person Assistance PT-Transfer Assessment Sit to and From Stand Sit to and from Contact Guard Assistance,1 Person Assistance,Use of Stand Upper Extremities Equipment Transfer Assistive Gait Belt,Straight Cane Device Orthotic/Prosthetic No Devices or Brace: Transfers Transfer Destination Chair Transfer Technique ambulated Transfer Ability Level of Assist Contact Guard Assistance,Minimal Assistance,1 Person Assistance,Use of Upper Extremities Comments Mobility Comments pt in bed and agreeable to do PT. spouse arrived. obtained PLOF and home set up. completed supine to sit CGA to min A. pt required 2 attempts to get up. needing to position UE to push from bed and cues for directions. pt able to sit on EOB CGA. pt with increase posterior lean and lateral lean to the R and cued to correct. completed sit to stand from EOB SBA and ambulated with white cane CGA to min A and cues for directions. pt sat on the chair and requested to use the urinal. sit to stand from chair CGA. assisted with urinal use. sit to stand from chair CGA and ambulated in the hallway CGA to min A and max cues. pt with difficulty walking a straight path and needed cues and tactile orientation with his white cane. presents with lateral trunk lean to the R. pt completed stairs: CGA for ascending using R rail + white cane; min A for descending using rail and white cane. assisted pt back to the room. pt ambulated from w/c to chair CGA to min A using white cane and max cues provided. positioned pt on the chair. set up for lunch. call light next to to pt. Gait Assessment Gait Gait Assistance Contact Guard Assist,Minimum Assistance Required: Distance (Feet) 200 Able to Maintain Yes Weight Bearing Status During Gait Assistive Devices Assistive Device Gait Belt,Straight Cane Orthotic/Prosthetic No Devices or Brace: Gait Deviations General Gait Pattern Decreased Stride Length,Decreased Feet Clearance,Flexed Trunk Factors Limiting Gait Function Factors Limiting Decreased Activity Tolerance,Decreased Strength, Gait Function Difficulty Following Directions,Poor Balance,Poor Safety Awareness Stair Climbing Assessment Evaluation Level of Assist On Contact Guard Assistance,Minimal Assistance Stairs Devices Stair Climbing Right Railing Assistive Devices Technique/Endurance Stair Climbing Ascend and Descend Direction Stair Climbing Step to Step Technique Number of Steps 3 Climbed Query Text: Stair Climbing Set # 1 Repetitions (reps) PT-Balance Assessment Sitting Balance and Reactions Static Sitting Good Balance Ability Dynamic Sitting Fair Balance Ability Standing Balance and Reactions Static Standing Fair Balance Ability Dynamic Standing Fair Balance Ability Device Used white cane M5 PT-IP Objective Assessments Start: 03/31/25 12:17 Freq: NEEDED Status: Active Protocol: Document 03/31/25 11:30 AB (Rec: 03/31/25 12:34 AB Desktop) Orientation Orientation/Cognition Level of Alertness Alert Orientation Name,Place,Situation Language Function Hard of Hearing Ability Safety Awareness Decreased Safety Awareness Memory Description Short Term Impaired Gross Range of Motion Lower Extremity ROM Assessment Within Functional Limits Strength Lower Extremity Strength Assessment Within Functional Limits Muscle Tone Muscle Tone WNL Yes M6 PT-IP Treatment Start: 03/31/25 12:17 Freq: NEEDED Status: Active Protocol: Document 03/31/25 11:30 AB (Rec: 03/31/25 12:34 AB Desktop) Physical Therapy Treatment Education Education Provided Safety M7 PT-IP Assessment and Plan Start: 03/31/25 12:17 Freq: NEEDED Status: Active Protocol: Document 03/31/25 11:30 AB (Rec: 03/31/25 12:34 AB Desktop) PT Summary Assessment and Plan Potential Rehabilitation Fair Potential Status of Condition Evolving at Evaluation Summary Impairments Pain,ROM,Strength,Balance,Coordination,Sensation,Tone, Cognition,Bed Mobility,Transfers,Gait,Activity Tolerance Assessment Summary pt is an 85 y/o M who is admitted for PNA. pt is legally blind and mobility level and restrictions is mainly due to this. pt lives with his family and spouse stated that she will be able to assist pt at home. Goals Bed Mobility Goal Standby Assistance Transfer Goal Standby Assistance,Cane Gait Goal Standby Assistance,Cane Gait Distance 200 Other Goals up/down 13 steps R rail+ white cane SBA Days to Meet Goals 10 Frequency of Treatment Frequency Of Once a Day Treatment Treatment Plan Physical Therapy Bed Mobility Training,Transfer Training,Gait Training, Treatment Plan Therapeutic Exercise,Balance Retraining,Discharge Planning,Hot or Cold Pack,Neuromuscular Re-ed, Coordination Retraining,Manual Therapy Precautions Other Precautions falls Recommendations To Nursing Amount of Assist 1 Person Assist Needed Discharge Recommendations PT Discharge Home with 15/02 Assist Available,Home Health Recommendations Transportation Needs Private Vehicle at Discharge
--- NOTE | 2025-03-31 12:09 | CM.DANOTE ---
DC Note Patient is discharging home today. Patient discussed in multidisciplinary rounds- No needs anticipated from this social sciences research scientist. Will plan to remain available for discharge coordination in case this changes. SILVER Discharge Planning/Care Management CM Discharge Assessment Start: 03/30/25 13:40 Freq: Status: Active Protocol: Document 03/31/25 12:06 SILVER (Rec: 03/31/25 12:09 SILVER [id number]) Discharge Planning Assessment Assigned Discharge ELIZABETH Javier Overlock Operator Provider Mirza Sinha Insurance [employer],Other (enter in Comment) Insurance Comment [employer] [facility] Advantage Advance Directives? Yes Advance Directives No on File History Provided By Patient,Family Member,Medical Record Prior Living House Arrangements Household Members spouse,children Independent with ADL Yes 's Is patient alert and Yes oriented? Discharge Plan Home Transportation Family Arrangement Referrals Initiated None needed Additional Comment Patient is back to functional and cognitive baseline and will return home with family to assist as needed. Close outpatient follow up.
== END 2025-03-31 13:45 | disposition home or self-care (01) ==
LOC: ED 11:40 → AC 12:18
PROVIDERS: Admitting Provider Internal Medicine; Emergency Provider Family Medicine; PCP Family Medicine; Referring Provider Family Medicine; Visit Provider Internal Medicine
DX: J18.8 Other pneumonia, unspecified organism (principal); J47.9 Bronchiectasis, uncomplicated; R53.1 Weakness; H54.8 Legal blindness, as defined in USA; I10 Essential (primary) hypertension; E78.5 Hyperlipidemia, unspecified; I48.0 Paroxysmal atrial fibrillation; N40.0 Benign prostatic hyperplasia without lower urinary tract symptoms; Z90.2 Acquired absence of lung [part of]; Z95.818 Presence of other cardiac implants and grafts; Z79.82 Long term (current) use of aspirin
CPT/HCPCS: 36415; 71045; 80048; 80053; 82550; 83605; 83690; 83880; 84484; 85025; 85610; 87040; 87637; 93005; 94640; 96365; 96366; 96367; 97162; 97530; 99284; G0378; J0696; J7613

== ENCOUNTER 2025-04-01 14:36 | Emergency (ER) | payer OTHER, MEDICARE, SELFPAY ==
[2025-03-30 13:42] VITALS: BMI 25.9
[2025-04-01] VITALS (18 sets, daily range): BP systolic 123–147; BP diastolic 67–81; PULSE 60–67; RESP 16–20; TEMP 37; O2SAT 95–98; BMI 25.8
--- NOTE | 2025-04-01 15:07 | DI.CT.S_ITS ---
PROCEDURE: CT CERVICAL SPINE WO CON INDICATIONS: fall TECHNIQUE: Noncontrast 3 mm thick sections acquired from the skull base to the T4 level. Sagittal and coronal reformats were then constructed. For radiation dose reduction, the following was used: automated exposure control, adjustment of mA and/or kV according to patient size. COMPARISON: [facility], CT, CT HEAD/BRAIN WO CON, 04/01/2025, 15:15. FINDINGS: Image quality: This examination is somewhat limited by quantum mottle artifact. Bones: No fractures or dislocations. Visualized superior ribs are intact. Degenerative changes are seen, which are worst inferiorly. Soft tissues: Prevertebral soft tissues are normal in thickness. No paravertebral hematomas. No apical pneumothoraces. IMPRESSION: No displaced fracture or traumatic subluxation. There are cervical spine degenerative changes seen, which are worst inferiorly. Dictated by: Jostin Wallace M.D. on 04/01/2025 at 14:40 Approved by: Jostin Wallace M.D. on 04/01/2025 at 14:42
--- NOTE | 2025-04-01 15:07 | DI.CT.S_ITS ---
PROCEDURE: CT HEAD/BRAIN WO CON INDICATIONS: fall TECHNIQUE: Noncontrast 4.5 mm thick angled axial sections acquired from the foramen magnum to the vertex, with coronal and sagittal reformats. For radiation dose reduction, the following was used: automated exposure control, adjustment of mA and/or kV according to patient size. COMPARISON: [facility], CT, CT HEAD/BRAIN WO CON, 12/03/2020, 12:01. [facility], CT, CT CERVICAL SPINE WO CON, 04/01/2025, 15:15. [facility], CT, CT HEAD/BRAIN WO CON, 03/13/2023, 11:04. FINDINGS: Image quality: Diagnostic. CSF spaces: Basal cisterns are patent. No extra-axial fluid collections. The ventricles are symmetric in size and shape. Brain: No intracranial bleeds or mass effect. There is cerebral volume loss, with resultant ventricular and sulcal prominence. There are periventricular and deep white matter chronic small vessel ischemic changes. There is intracranial internal carotid artery atherosclerosis. Skull and face: Calvarium and visualized facial bones appear intact, without suspicious lesions. Sinuses: Moderate scattered mucosal thickening can be seen within the visualized paranasal sinuses. The mastoid air cells are not well developed and are poorly aerated. IMPRESSION: No acute intracranial hemorrhage is seen. No acute intracranial pathology. Dictated by: Jostin Wallace M.D. on 04/01/2025 at 14:39 Approved by: Jostin Wallace M.D. on 04/01/2025 at 14:40
[2025-04-01] MEDS: TET,DIPH,PERTUSS(ACELL),VAC/PF 0.5 ML SYRINGE IM (15:36)
--- NOTE | 2025-04-01 19:34 | ED.WOUNDLAC ---
HPI - Wound/Laceration General Chief Complaint: Wound/Laceration Stated Complaint: Fell on face Time Seen by Provider: 04/01/25 15:07 Source: patient Mode of arrival: Ambulatory History of Present Illness HPI narrative: Patient is a 85-year-old male with a past medical history of AFib on aspirin, hypertension, hyperlipidemia, legally blind comes into the ED for evaluation of mechanical trip and fall. Patient states that he fell and hit his head, states he did not have his walking stick, he denies any lightheaded dizziness chest pain syncope presyncopal symptoms was able to stand bear weight ambulate immediately after, Related Data Home Medications ?Medication ?Instructions ?Recorded ?Confirmed aspirin 325 mg tablet 325 mg OR QDAY ##0 06/02/16 03/30/25 diltiazem HCl 120 mg tablet 120 mg OR QDAY ##0 06/02/16 08/26/23 (Cardizem) flecainide 150 mg tablet 150 mg OR BID ##0 06/02/16 03/30/25 fluticasone 250 mcg-salmeterol 50 1 inh IH BID ##0 06/02/16 08/26/23 mcg/dose blistr powdr for inhalation (Advair Diskus) rosuvastatin 10 mg tablet (Crestor) 5 mg OR QDAY ##0 06/02/16 03/30/25 finasteride 5 mg tablet 5 mg PO DAILY 10/17/20 03/30/25 tamsulosin 0.4 mg capsule 0.8 mg PO BEDTIME 08/26/23 03/30/25 albuterol sulfate 1.25 mg/3 mL mg DAILY PRN shortness of breath 03/30/25 solution for nebulization or wheezing azithromycin 250 mg tablet 250 mg PO 3XW 03/30/25 03/30/25 budesonide-formoterol inhalation 03/30/25 celecoxib .ROUTE 03/30/25 magnesium 03/30/25 [id number] salt See Rx Instructions PO .COMPLEX 03/30/25 03/30/25 Previous Rx's ?Medication ?Instructions ?Recorded cefuroxime axetil 500 mg tablet 500 mg PO BID #12 tabs 03/31/25 Allergies Allergy/AdvReac Type Severity Reaction Status Date / Time grass pollen (GRASS POLLEN) Allergy Unknown Verified 03/30/25 10:11 pollen extracts (POLLEN Allergy Unknown Verified 03/30/25 10:11 EXTRACTS) dust Allergy Unknown Uncoded 03/30/25 10:11 Review of Systems Review of Systems Narrative: General: Denies fever, chills, weight loss HEENT: Positive head strike Denies headache, eye drainage, eye irritation, head trauma, sore throat, voice change Cardiovascular: Denies any chest pain, palpitations, tachycardia Respiratory: Denies any shortness of breath, cough, wheeze, stridor GI/: Denies any abdominal pain, nausea, vomiting, diarrhea, bright red blood per rectum, melanotic stools, urinary frequency, urinary retention, dysuria, hematuria MSK: Denies any joint pain, muscle pains, swelling Skin: Laceration to face Neuro: Denies any headache, lightheadedness, dizziness, fainting, weakness Psych: Denies SI/HI Patient History Medical History Blind BPH w urinary obs/LUTS Bronchiectasis Chronic a-fib Family history of prostate cancer Gout High blood pressure History of bacteremia History of UTI Hyperlipidemia Family History Father Blood disease Cancer Glaucoma Brother Cancer Social History marital status: number of children: 2 household members: spouse and children alcohol intake: current caffeine: Yes alcohol intake frequency: a few times a month Exam Narrative Exam Narrative: General: Cooperative, well-developed, not in acute distress HEENT: Patient with a 1 cm laceration noted to the top of the bridge of the nose, also 1 cm elliptical laceration noted to the forehead just above the bridge of the nose, PERRLA, normal sclera, eyelids normal Neck: Active full range of motion, atraumatic Chest: Normal to inspection, negative crepitus, no overlying erythema ecchymosis Respiratory: Normal respiratory effort, not in acute respiratory distress, clear to auscultation bilaterally negative cough, wheeze, tachypnea, rhonchi, rales Cardiology: Regular rate rhythm negative gallop, murmur, rubs GI/: No tenderness to palpation, soft, non rigid, normal to inspection, exam deferred MSK: Full active range of motion in all 4 extremities, atraumatic, no tenderness to palpation of any bony prominences Skin: No rashes or lesions noted Neuro: Alert awake oriented x3, moves all 4 extremities spontaneously, cranial nerves intact, able to answer all questions appropriately follows commands appropriately Psych: Cooperative, negative suicidal or homicidal ideations Initial Vital Signs Initial Vital Signs: Vital Signs Temperature 98.6 F 04/01/25 14:46 Pulse Rate 65 04/01/25 14:46 Respiratory Rate 16 04/01/25 14:46 Blood Pressure 145/71 H 04/01/25 14:46 Pulse Oximetry 97 04/01/25 14:46 Oxygen Delivery Method Room Air 04/01/25 14:46 Procedures Laceration Repair Laceration 1: Time of procedure: 20:11 Site: face Size (cm): 1 Description: other (Elliptical) Depth: simple, single layer Local Anesthetic: lidocaine 1% Amount of anesthesia used (mL): 3 Pre-repair: wound explored, irrigated extensively and deep structures intact Skin layer closed with: other (Ethilon) Skin layer suture size: 4-0 Number of sutures: 4 Technique: simple, interrupted Laceration 2: Time of procedure: 20:12 Site: other (Nose) Size (cm): 1 Description: linear Depth: simple, single layer Local Anesthetic: lidocaine 1% Amount of anesthesia used (mL): 1 Pre-repair: wound explored, irrigated extensively and deep structures intact Skin layer closed with: other (Ethilon) Skin layer suture size: 4-0 Number of sutures: 1 Technique: simple, interrupted Course Orders Ordered: ED Orders 04/01/25 15:07 CT cervical spine wo con Stat CT head/brain wo con Stat Discontinued Medications Diphtheria/Tetanus/Acell Pertussis (Tet,Diph,Pertuss(Acell),Vac/Pf 0.5 Ml Syringe) 0.5 ml IM .ONCE ONE Stop: 04/01/25 15:08 Last Admin: 04/01/25 15:36 Dose: 0.5 ml Documented By: TC Vital Signs Vital signs: Vital Signs - 8 hr 04/01/25 14:46 Temperature 98.6 F Pulse Rate 65 Respiratory Rate 16 Blood Pressure 145/71 H Pulse Oximetry 97 Oxygen Delivery Method Room Air MDM - Wound/Laceration MDM Narrative Medical decision making narrative: Patient is a 85-year-old male baseline blindness, AFib on aspirin not on anticoagulation due to recurrent falls, hypertension, hyperlipidemia, comes into the ED from home for evaluation mechanical trip and fall, patient states that he did not have his walking stick and therefore fell forward hit his head, patient had tetanus updated here. Patient had CT scan of head and cervical spine without any acute fractures, patient had laceration noted to the bridge of the nose as well as to the forehead this was repaired with Ethilon sutures. Patient was instructed to follow up with the primary care in outpatient setting he is at baseline, strict return precautions given verbalized understanding of this and agrees to being discharged home with outpatient follow up Discharge Plan Departure Patient Disposition: Home Clinical Impression: Closed head injury, Ground-level fall, Face lacerations Instructions: DI for Laceration Repair Activity Restrictions/Additional Instructions: You need to have your sutures removed in a proximally 1 week Please read the discharge instructions sheet carefully and bring all papers to all doctor follow-up visits, as it may contain information that your doctor may want to see. Disease processes change and evolve, if your symptoms worsen or if you develop any new symptoms that are concerning to you please return for evaluation. Your evaluation today does not show any evidence of any life-threatening/serious illnesses requiring admission to the hospital or surgery. Please follow-up with your doctor for re-evaluation in approximately 1 day. Seek immediate medical attention for any worrisome symptoms. *If you do not have a primary care provider please contact the [facility] Resource line at [phone]. They will ask some questions about your medical history and help get you set up with a doctor in the community. Prescriptions: No Action flecainide 150 MG tablet 150 mg OR BID Qty: 0 Patient Comments: 2 in the morning and 1 at night rosuvastatin [Crestor] 10 MG tablet 5 mg OR QDAY Qty: 0 Rx Instructions: 5mg 1tab daily diltiazem HCl [Cardizem] 120 MG tablet 120 mg OR QDAY Qty: 0 aspirin 325 MG tablet 325 mg OR QDAY Qty: 0 fluticasone propion-salmeterol [Advair Diskus] 250-50 mcg/dose blister with device 1 inh IH BID Qty: 0 finasteride 5 mg tablet 5 mg PO DAILY tamsulosin 0.4 mg capsule 0.8 mg PO BEDTIME [id number] salt [Cardia] See Rx Instructions PO .COMPLEX Rx Instructions: cardia x1 daily orally; celecoxib [Celebrex] .ROUTE Rx Instructions: 300 mg magnesium Rx Instructions: 400 mg 1 cap daily budesonide-formoterol [Symbicort] inhalation Rx Instructions: 2 puffs in morning as needed at night azithromycin 250 mg tablet 250 mg PO 3XW Rx Instructions: 250 mg 3 times a week mon,wed,fri albuterol sulfate 1.25 mg/3 mL solution for nebulization DAILY PRN (Reason: shortness of breath or wheezing) Rx Instructions: 3 x day cefuroxime axetil 500 mg tablet 500 mg PO BID Qty: 12 0RF Referrals: Mirza Sihna MD [Primary Care Provider, Family Practice] Stand Alone Forms: Patient Portal/API
[2025-04-01] MEDS: ALBUTEROL HFA PREPACK 1 BOX MISC (20:01)
[2025-04-01] MEDS: LIDOCAINE 2% INJ MDV 20ML 10 ML INJ (20:12)
== END 2025-04-01 20:27 | disposition home or self-care (01) ==
PROVIDERS: Emergency Provider Student in an Organized Health Care Education/Training Program; PCP Family Medicine
DX: S01.81XA Laceration without foreign body of other part of head, initial encounter (principal); S09.90XA Unspecified injury of head, initial encounter; W01.0XXA Fall on same level from slipping, tripping and stumbling without subsequent striking against object, initial encounter; Z79.82 Long term (current) use of aspirin; Z23 Encounter for immunization
CPT/HCPCS: 12011; 70450; 72125; 90471; 99283; 99284; 90715

== ENCOUNTER → 2025-05-31 14:42 | Outpatient (CLI) | payer OTHER, SELFPAY ==
[2025-03-30 13:42] VITALS: BMI 25.9
--- NOTE | 2025-05-31 14:51 | DI.RAD.S_ITS ---
PROCEDURE: XR HIP W PEL IF DONE BILAT 2V
--- NOTE | 2025-05-31 14:51 | DI.RAD.S_ITS ---
PROCEDURE: XR CHEST 2V
== END ==
PROVIDERS: PCP Family Medicine; Referring Provider Family Medicine; Visit Provider Family Medicine
DX: J18.9 Pneumonia, unspecified organism (principal); M25.559 Pain in unspecified hip; K59.00 Constipation, unspecified
CPT/HCPCS: 71046; 73521